=== PATIENT | male | born 1960 | race Caucasian/White ===

== ENCOUNTER 2021-12-09 13:04 | Inpatient (IN) | payer BC, SELFPAY ==
[2021-12-09] VITALS (7 sets, daily range): BP systolic 82–129; BP diastolic 42–62; PULSE 18–126; RESP 18–26; TEMP 36.7–37.1; O2SAT 96–98; BMI 35.2
--- NOTE | ~2021-12-09 | XR_ITS ---
EXAMINATION: XR CHEST CLINICAL INFORMATION: Weakness COMPARISON: None TECHNIQUE: Frontal view of the chest was obtained. FINDINGS: No significant abnormality is noted involving the heart, lungs, mediastinum, bony thorax or soft tissues. XR/XR chest 1V IMPRESSION: Unremarkable examination.
--- NOTE | ~2021-12-09 | CT_ITS ---
EXAMINATION: CT ANGIOGRAM OF THE CHEST WITH AND WITHOUT CONTRAST (CT PULMONARY ANGIOGRAM FOR PE) CLINICAL INFORMATION: Reason for Exam Presyncope. Elevated D-dimer. COMPARISON: None TECHNIQUE: Prior to contrast administration, noncontrast localization images were obtained. Subsequently, multidetector volumetric imaging was performed from the thoracic inlet to below the diaphragms following the administration of 80 mL Omnipaque 350 intravenous contrast. No contrast reaction reported Sagittal, coronal, and MIP oblique sagittal reformatted images were obtained on the CT workstation, uploaded to PACS, and reviewed. This CT examination was performed using dose optimization techniques as appropriate, variously including the following: *Automated exposure control *Adjustment of mA and/or kV according to patient size (this includes techniques or standardized protocols for targeted exams where dose is matched to indication/reason for exam; i.e. extremities or head) *Use of iterative reconstruction technique Total exam dose-length product 328 mGy-cm FINDINGS: QUALITY OF STUDY/CONTRAST BOLUS: Satisfactory. PULMONARY ARTERIES: No central or segmental pulmonary emboli. THORACIC AORTA: No aneurysm or dissection. LUNG: No focal consolidation, nodules or masses. PLEURA: No pleural effusion or pneumothorax. MEDIASTINUM: Normal heart size. No pericardial effusion. No hilar or mediastinal lymphadenopathy. No evidence of septal bowing or right heart strain. Prominent right posterior presumably diaphragmatic hernia containing fat only. No bowel involvement. CHEST WALL/AXILLA: No axillary or internal mammary lymphadenopathy. OSSEOUS STRUCTURES: No acute or suspicious osseous abnormality. UPPER ABDOMEN: Unremarkable. No reflux of contrast into the hepatic veins to suggest elevated right heart pressures. CT/CT angio chest PE protocol IMPRESSION: No evidence for any acute or chronic pulmonary embolism. VTE: negative
--- NOTE | 2021-12-09 13:27 | ECG_ITS ---
Test Reason : DIZZINESS Blood Pressure : / mmHG Vent. Rate : 099 BPM Atrial Rate : 000 BPM P-R Int : 000 ms QRS Dur : 106 ms QT Int : 294 ms P-R-T Axes : 000 243 052 degrees QTc Int : 377 ms Atrial fibrillation Right superior axis deviation Incomplete right bundle branch block Right ventricular hypertrophy Inferior infarct , age undetermined Abnormal ECG No previous ECGs available Referred By: Samina Barnard Electronically Signed By:ALFONZO MEHTA MD
[2021-12-09 14:04] LABS: MANUAL DIFF FLAG NO
--- NOTE | 2021-12-09 14:07 | ED.GENADULT ---
HPI - General Adult General Chief complaint: Dizziness Stated complaint: diarrhea Time Seen by Provider: 12/09/21 13:18 Source: patient Mode of arrival: ambulatory History of Present Illness HPI narrative: 61-year-old male with a past medical history of hypertension, Hypothyroid, presenting to the ED complaining of lightheadedness, generalized fatigue/weakness, full body pain/myalgias, and nonbloody watery diarrhea x3 days. Also reports some palpitations noted today. Admits to near syncope, denies LOC. Denies CP, SOB, abdominal pain, nausea/vomiting, pedal edema, recent travel, suspicious food intake Onset (ago): day(s) Related Data Home Medications Medication Instructions Recorded Confirmed hydrochlorothiazide 25 mg tablet 1 tab PO DAILY 12/09/21 12/09/21 levothyroxine 100 mcg tablet 1 tab PO DAILY 12/09/21 12/09/21 losartan 100 mg tablet 1 tab PO DAILY 12/09/21 12/09/21 Allergies Allergy/AdvReac Type Severity Reaction Status Date / Time No Known Allergies Allergy Verified 12/09/21 13:27 Review of Systems Review of Systems: Constitutional: No Fever, No Chills, + Fatigue, + Malaise ENT/Mouth: No Ear Pain, No Nasal Congestion, No Sinus Pain, No sore throat, No Rhinorrhea, No Swallowing Difficulty Eyes: No Eye Pain, No Swelling, No Redness, No Discharge Cardiovascular: No Chest Pain, No SOB, No Dyspnea on Exertion, No Orthopnea, No Edema, + Palpitations Respiratory: No Cough, No Sputum, No Dyspnea Gastrointestinal: No Nausea, No Vomiting, No Diarrhea, No Constipation, No Abdominal pain Genitourinary: No irregular bleeding, No Dysuria, No Urinary Frequency, No Hematuria, No Flank Pain, No Urinary Flow Changes Musculoskeletal: No joint pain, + Myalgias, No Joint Swelling Skin: No Skin Lesions, No rash Neuro: + Weakness, No Numbness, No Paresthesias, + Lightheaded, No Headache Yes all other systems are reviewed and are negative Neurologic: Denies Abnormal speech present [facility] Past Medical History Attestation statement: The following information was validated with the patient. Medical History HTN (hypertension) Hypothyroid Family History Family History Mother Diabetes HTN (hypertension) CAD (coronary artery disease) Social History Social History Advance Directives: Yes Advance Directives Information Provided: No Advance Directives on File: No Physical Exam ED Vital Signs: Vital Signs - 24 hr 12/09/21 13:16 12/09/21 14:40 12/09/21 14:41 Temperature 98.7 F Pulse Rate 126 H 92 81 Respiratory Rate 20 Blood Pressure 105/42 L 105/46 L 104/53 L Pulse Oximetry 98 12/09/21 14:43 12/09/21 14:46 12/09/21 17:54 Temperature 98.7 F 98.8 F Pulse Rate 80 90 106 H Respiratory Rate 18 19 Blood Pressure 82/48 L 92/53 L 129/62 Pulse Oximetry 98 97 BMI result Body Mass Index 35.2 Const General: cooperative, healthy appearing, no acute distress, well developed, alert and awake Orientation/consciousness: patient oriented x3 Limitations: no limitations HENMT Head: Yes normal to inspection and Yes atraumatic Ears: hearing grossly normal bilaterally General nose exam: Normal external nose present Face and sinus: Yes normal facial exam Throat: Yes posterior oropharynx normal, Yes tonsils normal and Yes uvula midline Eyes General: appearance normal, both eyes and all related structures EOM: EOMs intact bilaterally Neck Neck: Yes normal visual inspection and Yes no meningeal signs Resp Effort & Inspection: normal respiratory effort and no respiratory distress Auscultation: clear to auscultation bilaterally, no rales, no rhonchi and no wheezes Cardio Rate: tachycardic Rhythm: abnormal rhythm Heart sounds: S1 normal heart sound present and S2 normal heart sound present GI Inspection: Yes normal to inspection Palpation (GI): Soft to palpation, nontender, no guarding and not rigid General: Yes no CVA tenderness Back/Spine/Pelvis Back: no CVA tenderness Skin Rashes: no rashes Wounds: no wounds Neuro General: patient oriented x3, gait normal, tone normal, moves all extremities, no meningeal signs, no focal motor deficits and CN's II-XI intact bilaterally Cranial nerves: Yes CN's II-XII intact bilaterally and Yes Bilaterally intact EOM present Cognition (Neuro): normal cognition Speech: No Abnormal speech present Gait exam (Neuro): Normal gait present Motor exam (neuro): 5/5 motor strength present throughout, Pronator motor function not present and no tremor noted Extrem General: Yes normal to inspection and Yes no pedal edema Course Course Course Narrative: -1420--no leukocytosis, D-dimer elevated to 1023 > will obtain CTA. Lactic acid 1.8 -EKG showing AFib at a rate of 99. Possibly related to dehydration, due to potential for PE with elevated D-dimer will hold on rate control medications until CTA results [id number] Score =1 -1452--initial troponin 14.5 > will obtain 3 hour repeat. COVID-19 and influenza negative Labs hemolyzed. Pending redraw -1615--mild WONG with BUN of 25, creatinine 1.56. AST/ALT mildly elevated. Repeat troponin equivocal. XR chest 1V IMPRESSION: Unremarkable examination. -orthostatic vital signs positive -1723--CT angio chest PE protocol IMPRESSION: No evidence for any acute or chronic pulmonary embolism. VTE: negative > results discussed with patient. Plan to admit for further management Medical Decision Making MDM Narrative Medical decision making narrative: 61-year-old male with a past medical history of hypertension, Hypothyroid, presenting to the ED complaining of lightheadedness, generalized fatigue/weakness, full body pain/myalgias, and nonbloody watery diarrhea x3 days. On exam tachycardic, NAD, well-appearing/nontoxic, appears to be in new onset AFib on the monitor EKG pending, abdomen soft-nontender, no pedal edema, lungs CTA. No focal neuro deficits. Concern for new onset AFib vs PE vs dehydration/gastroenteritis/metabolic abnormalities vs viral syndrome including COVID-19 and influenza. Lower concern for ACS. Concern for ?C diff or infectious diarrhea Plan: EKG, labs, UA, CXR, IVF, stool studies, COVID/Influenza testing, anticipated admission Medical Records Medical records reviewed: Yes I reviewed the patient's medical records. Lab Data Lab results reviewed: Yes I reviewed the patient's lab results. Result diagrams: 12/09/21 13:54 12/09/21 15:09 Labs: Lab Results 12/09/21 12/09/21 12/09/21 Range/Units 13:54 13:54 13:54 WBC 6.5 (4.8-10.8) X10*3/uL RBC 5.30 (4.60-5.80) X10*6/uL Hgb 15.2 (14.0-18.0) g/dl Hct 45.6 (42.0-52.0) % MCV 86.0 (80.0-98.0) fL MCH 28.7 (27.0-33.0) pg MCHC 33.3 (31.0-36.0) g/dl RDW 13.2 (11.0-16.0) % Plt Count 159 L (160-400) X10*3/uL MPV 10.2 (9.4-12.4) fL Immature Gran % (Auto) 0.6 H (0.0-0.4) % Neut % (Auto) 80.6 H (45-73) % Lymph % (Auto) 10.1 L (20-40) % [place] % (Auto) 8.2 (2-11) % Eos % (Auto) 0.2 (0-4) % Baso % (Auto) 0.3 (0-2) % Lymph # (Auto) 0.7 L (1.2-4.9) X10*3/uL [place] # (Auto) 0.5 (0.1-1.2) X10*3/uL Eos # (Auto) 0.0 (0.0-0.4) X10*3/uL Baso # (Auto) 0.0 (0.0-0.2) X10*3/uL Abs Immat Gran (auto) 0.04 H (0.00-0.03) X10*3/uL Absolute Neuts (auto) 5.2 (2.0-8.3) x10*3/uL Absolute Nucleated RBC 0.000 (0.0-0.012) X10*3/uL Nucleated RBC % (auto) 0.0 (0.0-0.2) /100WBC PT 12.8 (9.9-13.0) SEC INR 1.1 (0.9-1.1) APTT 34.5 (24.1-38.0) SEC D-Dimer High Sensitivty 1023 NG/ML Sodium (135-145) mmol/L Potassium (3.3-5.1) mmol/L Chloride (96-108) mmol/L Carbon Dioxide (22-29) mmol/L Anion Gap (12-20) BUN (9-16) mg/dL Creatinine (0.5-1.4) mg/dL Estim Creat Clear Calc Estimated GFR Random Glucose (60-115) mg/dL Lactic Acid (0.5-2.0) mmol/L Calcium (8.4-10.2) mg/dL Magnesium (1.6-2.6) mg/dL Total Bilirubin (0.0-1.0) mg/dL Direct Bilirubin (0.0-0.5) mg/dL AST (5-37) U/L ALT (0-40) U/L Alkaline Phosphatase (39-117) U/L Troponin I High Sens 14.5 (<3.5-35.0) ng/L B-Natriuretic Peptide 57 (<100) pg/mL Total Protein (6.5-8.0) g/dL Albumin (3.5-5.0) g/dL Lipase (8-78) U/L TSH Free T4 (0.71-1.85) ng/dL Urine Color Urine Appearance Urine pH (5.0-8.0) Ur Specific [place] (1.005-1.025) Urine Protein (NEG-TRACE) MG/DL Urine Glucose (UA) (NEG) MG/DL Urine Ketones (NEG) MG/DL Urine Blood (NEG) Urine Nitrite (NEG) Ur Leukocyte Esterase (NEG) COVID-19 (LAUREL) (Negative) COVID-19 Clin Com Influenza Type A (HARMAN) (Negative) Influenza Type B (HARMAN) (Negative) Influenza A & B Note 12/09/21 12/09/21 12/09/21 Range/Units 13:54 13:54 13:54 WBC (4.8-10.8) X10*3/uL RBC (4.60-5.80) X10*6/uL Hgb (14.0-18.0) g/dl Hct (42.0-52.0) % MCV (80.0-98.0) fL MCH (27.0-33.0) pg MCHC (31.0-36.0) g/dl RDW (11.0-16.0) % Plt Count (160-400) X10*3/uL MPV (9.4-12.4) fL Immature Gran % (Auto) (0.0-0.4) % Neut % (Auto) (45-73) % Lymph % (Auto) (20-40) % [place] % (Auto) (2-11) % Eos % (Auto) (0-4) % Baso % (Auto) (0-2) % Lymph # (Auto) (1.2-4.9) X10*3/uL [place] # (Auto) (0.1-1.2) X10*3/uL Eos # (Auto) (0.0-0.4) X10*3/uL Baso # (Auto) (0.0-0.2) X10*3/uL Abs Immat Gran (auto) (0.00-0.03) X10*3/uL Absolute Neuts (auto) (2.0-8.3) x10*3/uL Absolute Nucleated RBC (0.0-0.012) X10*3/uL Nucleated RBC % (auto) (0.0-0.2) /100WBC PT (9.9-13.0) SEC INR (0.9-1.1) APTT (24.1-38.0) SEC D-Dimer High Sensitivty NG/ML Sodium (135-145) mmol/L Potassium (3.3-5.1) mmol/L Chloride (96-108) mmol/L Carbon Dioxide (22-29) mmol/L Anion Gap (12-20) BUN (9-16) mg/dL Creatinine (0.5-1.4) mg/dL Estim Creat Clear Calc Estimated GFR Random Glucose (60-115) mg/dL Lactic Acid 1.8 (0.5-2.0) mmol/L Calcium (8.4-10.2) mg/dL Magnesium (1.6-2.6) mg/dL Total Bilirubin (0.0-1.0) mg/dL Direct Bilirubin (0.0-0.5) mg/dL AST (5-37) U/L ALT (0-40) U/L Alkaline Phosphatase (39-117) U/L Troponin I High Sens (<3.5-35.0) ng/L B-Natriuretic Peptide (<100) pg/mL Total Protein (6.5-8.0) g/dL Albumin (3.5-5.0) g/dL Lipase (8-78) U/L TSH Free T4 (0.71-1.85) ng/dL Urine Color Urine Appearance Urine pH (5.0-8.0) Ur Specific [place] (1.005-1.025) Urine Protein (NEG-TRACE) MG/DL Urine Glucose (UA) (NEG) MG/DL Urine Ketones (NEG) MG/DL Urine Blood (NEG) Urine Nitrite (NEG) Ur Leukocyte Esterase (NEG) COVID-19 (LAUREL) Negative (Negative) COVID-19 Clin Com See Note Influenza Type A (HARMAN) Negative (Negative) Influenza Type B (HARMAN) Negative (Negative) Influenza A & B Note See Note 12/09/21 12/09/21 12/09/21 Range/Units 13:54 13:54 15:09 WBC (4.8-10.8) X10*3/uL RBC (4.60-5.80) X10*6/uL Hgb (14.0-18.0) g/dl Hct (42.0-52.0) % MCV (80.0-98.0) fL MCH (27.0-33.0) pg MCHC (31.0-36.0) g/dl RDW (11.0-16.0) % Plt Count (160-400) X10*3/uL MPV (9.4-12.4) fL Immature Gran % (Auto) (0.0-0.4) % Neut % (Auto) (45-73) % Lymph % (Auto) (20-40) % [place] % (Auto) (2-11) % Eos % (Auto) (0-4) % Baso % (Auto) (0-2) % Lymph # (Auto) (1.2-4.9) X10*3/uL [place] # (Auto) (0.1-1.2) X10*3/uL Eos # (Auto) (0.0-0.4) X10*3/uL Baso # (Auto) (0.0-0.2) X10*3/uL Abs Immat Gran (auto) (0.00-0.03) X10*3/uL Absolute Neuts (auto) (2.0-8.3) x10*3/uL Absolute Nucleated RBC (0.0-0.012) X10*3/uL Nucleated RBC % (auto) (0.0-0.2) /100WBC PT (9.9-13.0) SEC INR (0.9-1.1) APTT (24.1-38.0) SEC D-Dimer High Sensitivty Cancelled NG/ML Sodium 134 L (135-145) mmol/L Potassium 4.1 (3.3-5.1) mmol/L Chloride 97 (96-108) mmol/L Carbon Dioxide 27 (22-29) mmol/L Anion Gap 14 (12-20) BUN 25 H (9-16) mg/dL Creatinine 1.56 H (0.5-1.4) mg/dL Estim Creat Clear Calc 60.5 Estimated GFR 45 Random Glucose 116 H (60-115) mg/dL Lactic Acid (0.5-2.0) mmol/L Calcium 8.8 (8.4-10.2) mg/dL Magnesium 2.5 (1.6-2.6) mg/dL Total Bilirubin 0.5 (0.0-1.0) mg/dL Direct Bilirubin 0.2 (0.0-0.5) mg/dL AST 43 H (5-37) U/L ALT 48 H (0-40) U/L Alkaline Phosphatase 63 (39-117) U/L Troponin I High Sens (<3.5-35.0) ng/L B-Natriuretic Peptide (<100) pg/mL Total Protein 6.4 L (6.5-8.0) g/dL Albumin 3.8 (3.5-5.0) g/dL Lipase 31 (8-78) U/L TSH Cancelled 0.11 L Free T4 1.20 (0.71-1.85) ng/dL Urine Color Urine Appearance Urine pH (5.0-8.0) Ur Specific [place] (1.005-1.025) Urine Protein (NEG-TRACE) MG/DL Urine Glucose (UA) (NEG) MG/DL Urine Ketones (NEG) MG/DL Urine Blood (NEG) Urine Nitrite (NEG) Ur Leukocyte Esterase (NEG) COVID-19 (LAUREL) (Negative) COVID-19 Clin Com Influenza Type A (HARMAN) (Negative) Influenza Type B (HARMAN) (Negative) Influenza A & B Note 12/09/21 12/09/21 Range/Units 15:09 16:45 WBC (4.8-10.8) X10*3/uL RBC (4.60-5.80) X10*6/uL Hgb (14.0-18.0) g/dl Hct (42.0-52.0) % MCV (80.0-98.0) fL MCH (27.0-33.0) pg MCHC (31.0-36.0) g/dl RDW (11.0-16.0) % Plt Count (160-400) X10*3/uL MPV (9.4-12.4) fL Immature Gran % (Auto) (0.0-0.4) % Neut % (Auto) (45-73) % Lymph % (Auto) (20-40) % [place] % (Auto) (2-11) % Eos % (Auto) (0-4) % Baso % (Auto) (0-2) % Lymph # (Auto) (1.2-4.9) X10*3/uL [place] # (Auto) (0.1-1.2) X10*3/uL Eos # (Auto) (0.0-0.4) X10*3/uL Baso # (Auto) (0.0-0.2) X10*3/uL Abs Immat Gran (auto) (0.00-0.03) X10*3/uL Absolute Neuts (auto) (2.0-8.3) x10*3/uL Absolute Nucleated RBC (0.0-0.012) X10*3/uL Nucleated RBC % (auto) (0.0-0.2) /100WBC PT (9.9-13.0) SEC INR (0.9-1.1) APTT (24.1-38.0) SEC D-Dimer High Sensitivty NG/ML Sodium (135-145) mmol/L Potassium (3.3-5.1) mmol/L Chloride (96-108) mmol/L Carbon Dioxide (22-29) mmol/L Anion Gap (12-20) BUN (9-16) mg/dL Creatinine (0.5-1.4) mg/dL Estim Creat Clear Calc Estimated GFR Random Glucose (60-115) mg/dL Lactic Acid (0.5-2.0) mmol/L Calcium (8.4-10.2) mg/dL Magnesium (1.6-2.6) mg/dL Total Bilirubin (0.0-1.0) mg/dL Direct Bilirubin (0.0-0.5) mg/dL AST (5-37) U/L ALT (0-40) U/L Alkaline Phosphatase (39-117) U/L Troponin I High Sens 15.8 (<3.5-35.0) ng/L B-Natriuretic Peptide (<100) pg/mL Total Protein (6.5-8.0) g/dL Albumin (3.5-5.0) g/dL Lipase (8-78) U/L TSH Free T4 (0.71-1.85) ng/dL Urine Color YELLOW Urine Appearance CLEAR Urine pH 6.0 (5.0-8.0) Ur Specific [place] 1.020 (1.005-1.025) Urine Protein TRACE (NEG-TRACE) MG/DL Urine Glucose (UA) NEG (NEG) MG/DL Urine Ketones NEG (NEG) MG/DL Urine Blood NEG (NEG) Urine Nitrite NEG (NEG) Ur Leukocyte Esterase NEG (NEG) COVID-19 (LAUREL) (Negative) COVID-19 Clin Com Influenza Type A (HARMAN) (Negative) Influenza Type B (HARMAN) (Negative) Influenza A & B Note Critical Care Time Critical Care Time Critical Care Time: Yes Total Critical Care Time: 30 Attestation: I have personally provided critical care time exclusive of time spent on separately billable procedures. Time includes review of lab data, radiology results, discussion with consultants, and monitoring for potential decompensation. Intervention performed as documented. Discharge Plan Discharge Clinical Impression: New onset a-fib, Dehydration, WONG (acute kidney injury) Patient Disposition: Admitted As Inpatient
[2021-12-09 14:10] LABS: Basophils Percent Auto 0.3 % (0-2); Eosinophils Percent Auto 0.2 % (0-4); Hematocrit 45.6 % (42.0-52.0); Hemoglobin 15.2 g/dl (14.0-18.0); Imm Gran Abs Auto 0.04 X10*3/uL (0.00-0.03); Imm Gran Pct Auto 0.6 % (0.0-0.4); Lymphocytes Absolute Auto 0.7 X10*3/uL (1.2-4.9); Lymphocytes Percent Auto 10.1 % (20-40); Mean Corpuscular HGB Conc 33.3 g/dl (31.0-36.0); Mean Corpuscular Hemoglobin 28.7 pg (27.0-33.0); Mean Platelet Volume 10.2 fL (9.4-12.4); Monocytes Absolute Auto 0.5 X10*3/uL (0.1-1.2); Monocytes Percent Auto 8.2 % (2-11); Neutrophils Absolute Auto 5.2 x10*3/uL (2.0-8.3); Neutrophils Percent Auto 80.6 % (45-73); Platelet Count 159 X10*3/uL (160-400); Red Cell Distribution Width 13.2 % (11.0-16.0); White Blood Count 6.5 X10*3/uL (4.8-10.8)
[2021-12-09 14:13] LABS: INTERNATIONAL NORM RATIO 1.1 (0.9-1.1); Prothrombin Time 12.8 SEC (9.9-13.0)
[2021-12-09 14:15] LABS: D Dimer High Sensitivity 1023 NG/ML
[2021-12-09 14:16] LABS: Partial Thromboplastin Time 34.5 SEC (24.1-38.0)
[2021-12-09 14:17] LABS: Lactic Acid 1.8 mmol/L (0.5-2.0)
[2021-12-09 14:26] LABS: B Type Natriuretic Peptide 57 pg/mL (<100); COVID-19 Test Negative (Negative); IDNOW Serial# 16C4AD1C; Influenza A Negative (Negative); Influenza B2 Negative (Negative); Troponin-I High Sensitivity 14.5 ng/L (<3.5-35.0)
[2021-12-09] MEDS: 0.9 % Sodium Chloride 1,000 ML 999 ML IV (15:05)
[2021-12-09] MEDS: 0.9 % Sodium Chloride 500 ML 999 ML IV ×2 (15:06→18:04)
[2021-12-09 15:35] LABS: Alanine Aminotransferase 48 U/L (0-40); Albumin Level 3.8 g/dL (3.5-5.0); Alkaline Phosphatase 63 U/L (39-117); Anion Gap 14 (12-20); Aspartate Amino Transferase 43 U/L (5-37); Bilirubin Direct 0.2 mg/dL (0.0-0.5); Bilirubin Total 0.5 mg/dL (0.0-1.0); Blood Urea Nitrogen 25 mg/dL (9-16); Calcium 8.8 mg/dL (8.4-10.2); Carbon Dioxide 27 mmol/L (22-29); Chloride 97 mmol/L (96-108); Creatinine Clr Calc Pharmacy 60.5; Estimated Glomerular Filt Rate 45; Glucose Random 116 mg/dL (60-115); Lipase 31 U/L (8-78); Magnesium 2.5 mg/dL (1.6-2.6); Potassium 4.1 mmol/L (3.3-5.1); Sodium 134 mmol/L (135-145); Total Protein 6.4 g/dL (6.5-8.0)
[2021-12-09 15:37] LABS: Troponin-I High Sensitivity 15.8 ng/L (<3.5-35.0)
[2021-12-09 15:54] LABS: TSH reflex Free T4 0.11 uIU/mL (0.32-4.0)
[2021-12-09] MEDS: iohexoL 350 MG/ML 100 ML INFUS..BTL IV (16:21)
[2021-12-09] MEDS: Acetaminophen 325 MG TABLET 650 MG PO (16:54)
[2021-12-09 16:57] LABS: Appearance Urine CLEAR; Color Urine YELLOW; Glucose Urine UA NEG (NEG); Leukocyte Esterase Urine NEG (NEG); Nitrite Urine NEG (NEG); Urine Blood NEG (NEG); Urine Ketones NEG (NEG); Urine Protein TRACE MG/DL (NEG-TRACE)
--- NOTE | 2021-12-09 17:59 | HO.PM.IMCN ---
History of Present Illness Data of Consult Service Date: 12/09/21 Primary Care Provider: Tristian Villafuerte MD HPI 61 year old male with HTN takes Lisinopril and HCTZ, hypothyroidism on LT4 who has not been feeling since friday 2 days ago, weak, diarrhea, and pooor apetite. The has advised that he goes to ED and he wanted to take shower first, and after getting out of the shower and sitting on the toilet he fainted for about 5 minutes while son and were holding on to him, no evidence of seizure. 911 was subsquently to be brought to the ED where he is found to have AFIB with RVR HR 126 highest, and WONG Creatine 1.56. He feels a bit better Review of Systems Review of Systems: Gen: no fever Resp: no sob, no cough CV: no chest, no GAFFNEY, no leg edema, no palpitation GI: No n/v, no abd pain Neuro: No confusion PMFSH Medical History HTN (hypertension) Hypothyroid Family History Mother Diabetes HTN (hypertension) CAD (coronary artery disease) Social History Advance Directives: Yes Advance Directives Information Provided: No Advance Directives on File: No Meds Allergies Allergy/AdvReac Type Severity Reaction Status Date / Time No Known Allergies Allergy Verified 12/09/21 13:27 Active Medications: Current Medications Pharmacy Consult (Consult Rx Perform Med Rec) 1 each MISCELLANE ONCE PRN PRN Reason: Consult order Home Medications Medication Instructions Recorded Confirmed Last Taken Type hydrochlorothiazide 25 mg tablet 1 tab PO DAILY 12/09/21 12/09/21 Unknown History levothyroxine 100 mcg tablet 1 tab PO DAILY 12/09/21 12/09/21 Unknown History losartan 100 mg tablet 1 tab PO DAILY 12/09/21 12/09/21 Unknown History Physical Exam Vital Signs and Narrative: Vital Signs: Last Vital Signs Temp 98.8 F 12/09/21 17:54 Pulse 106 H 12/09/21 17:54 Resp 19 12/09/21 17:54 BP 129/62 12/09/21 17:54 Pulse Ox 97 12/09/21 17:54 BMI result Body Mass Index 35.2 Const: Other: Constitutional: Alert, in no distress, overweight. Mental Status: Oriented to person, place and time. Eyes: Pupils are equal, round and reactive to light. Ear, Nose and Throat: Oropharynx clear, mucous membranes moist. Ears and nose without eformities. Trachea midline. Respiratory: Clear to auscultation. No wheezing, rales or rhonchi. Cardiovascular: S1 S2 irregular irregular. No murmurs, rubs or gallops. Gastrointestinal: Abdomen soft, non-tender, non-distended. Normal bowel sounds.? Neurologic: Cranial nerves II-XII grossly intact. No focal neurological deficits. Moves all extremities spontaneously.? Skin: No rashes or lesions.? Musculoskeletal: No cyanosis or clubbing. Psychiatric: Normal mood and affect? Results Labs CBC and Chem 7: 12/10/21 06:19 12/10/21 06:19 Labs: Laboratory Results - last 24 hr 12/09/21 12/09/21 12/09/21 13:54 13:54 13:54 MCV 86.0 MCH 28.7 MCHC 33.3 RDW 13.2 Plt Count 159 L MPV 10.2 Immature Gran % (Auto) 0.6 H Neut % (Auto) 80.6 H Lymph % (Auto) 10.1 L [place] % (Auto) 8.2 Eos % (Auto) 0.2 Baso % (Auto) 0.3 Lymph # (Auto) 0.7 L [place] # (Auto) 0.5 Eos # (Auto) 0.0 Baso # (Auto) 0.0 Abs Immat Gran (auto) 0.04 H Absolute Neuts (auto) 5.2 Absolute Nucleated RBC 0.000 Nucleated RBC % (auto) 0.0 PT 12.8 INR 1.1 APTT 34.5 D-Dimer High Sensitivty 1023 Anion Gap Creatinine Estim Creat Clear Calc Estimated GFR Random Glucose Lactic Acid Calcium Magnesium Total Bilirubin Direct Bilirubin AST ALT Alkaline Phosphatase Troponin I High Sens 14.5 B-Natriuretic Peptide 57 Total Protein Albumin Lipase TSH Free T4 Urine Color Urine Appearance Urine pH Ur Specific [place] Urine Protein Urine Glucose (UA) Urine Ketones Urine Blood Urine Nitrite Ur Leukocyte Esterase COVID-19 (LAUREL) COVID-19 Clin Com Influenza Type A (HARMAN) Influenza Type B (HARMAN) Influenza A & B Note 12/09/21 12/09/21 12/09/21 13:54 13:54 13:54 MCV MCH MCHC RDW Plt Count MPV Immature Gran % (Auto) Neut % (Auto) Lymph % (Auto) [place] % (Auto) Eos % (Auto) Baso % (Auto) Lymph # (Auto) [place] # (Auto) Eos # (Auto) Baso # (Auto) Abs Immat Gran (auto) Absolute Neuts (auto) Absolute Nucleated RBC Nucleated RBC % (auto) PT INR APTT D-Dimer High Sensitivty Anion Gap Creatinine Estim Creat Clear Calc Estimated GFR Random Glucose Lactic Acid 1.8 Calcium Magnesium Total Bilirubin Direct Bilirubin AST ALT Alkaline Phosphatase Troponin I High Sens B-Natriuretic Peptide Total Protein Albumin Lipase TSH Free T4 Urine Color Urine Appearance Urine pH Ur Specific [place] Urine Protein Urine Glucose (UA) Urine Ketones Urine Blood Urine Nitrite Ur Leukocyte Esterase COVID-19 (LAUREL) Negative COVID-19 Clin Com See Note Influenza Type A (HARMAN) Negative Influenza Type B (HARMAN) Negative Influenza A & B Note See Note 12/09/21 12/09/21 12/09/21 13:54 13:54 15:09 MCV MCH MCHC RDW Plt Count MPV Immature Gran % (Auto) Neut % (Auto) Lymph % (Auto) [place] % (Auto) Eos % (Auto) Baso % (Auto) Lymph # (Auto) [place] # (Auto) Eos # (Auto) Baso # (Auto) Abs Immat Gran (auto) Absolute Neuts (auto) Absolute Nucleated RBC Nucleated RBC % (auto) PT INR APTT D-Dimer High Sensitivty Cancelled Anion Gap 14 Creatinine 1.56 H Estim Creat Clear Calc 60.5 Estimated GFR 45 Random Glucose 116 H Lactic Acid Calcium 8.8 Magnesium 2.5 Total Bilirubin 0.5 Direct Bilirubin 0.2 AST 43 H ALT 48 H Alkaline Phosphatase 63 Troponin I High Sens B-Natriuretic Peptide Total Protein 6.4 L Albumin 3.8 Lipase 31 TSH Cancelled 0.11 L Free T4 1.20 Urine Color Urine Appearance Urine pH Ur Specific [place] Urine Protein Urine Glucose (UA) Urine Ketones Urine Blood Urine Nitrite Ur Leukocyte Esterase COVID-19 (LAUREL) COVID-19 Clin Com Influenza Type A (HARMAN) Influenza Type B (HARMAN) Influenza A & B Note 12/09/21 12/09/21 15:09 16:45 MCV MCH MCHC RDW Plt Count MPV Immature Gran % (Auto) Neut % (Auto) Lymph % (Auto) [place] % (Auto) Eos % (Auto) Baso % (Auto) Lymph # (Auto) [place] # (Auto) Eos # (Auto) Baso # (Auto) Abs Immat Gran (auto) Absolute Neuts (auto) Absolute Nucleated RBC Nucleated RBC % (auto) PT INR APTT D-Dimer High Sensitivty Anion Gap Creatinine Estim Creat Clear Calc Estimated GFR Random Glucose Lactic Acid Calcium Magnesium Total Bilirubin Direct Bilirubin AST ALT Alkaline Phosphatase Troponin I High Sens 15.8 B-Natriuretic Peptide Total Protein Albumin Lipase TSH Free T4 Urine Color YELLOW Urine Appearance CLEAR Urine pH 6.0 Ur Specific [place] 1.020 Urine Protein TRACE Urine Glucose (UA) NEG Urine Ketones NEG Urine Blood NEG Urine Nitrite NEG Ur Leukocyte Esterase NEG COVID-19 (LAUREL) COVID-19 Clin Com Influenza Type A (HARMAN) Influenza Type B (HARMAN) Influenza A & B Note Imaging Radiologist's Impressions: Impressions Chest X-Ray 12/09/21 14:11 IMPRESSION: Unremarkable examination. Chest CTA 12/09/21 16:29 IMPRESSION: No evidence for any acute or chronic pulmonary embolism. VTE: negative Assessment and Plan (1) Hypothyroid: Status: Acute (2) HTN (hypertension): Status: Acute (3) New onset a-fib: Status: Acute (4) Dehydration: Status: Acute (5) WONG (acute kidney injury): Status: Acute Plan 61 year old male with HTN, Hypothyroidism here with syncope, new onset AFIB, and WONG 1/ AFIB--assymptomatic, so onset cannot be acsertained -Start Metoprolol 25 bid -Eliquis 5 mg bid -echo tomorrow -cardiology eval tomorro -check TSH 2/Syncope--likely from Orthostatic hypotension, related low BP, dehydation, BP med and diarrhea, except improvment with hydration. -check Orthostatic BP 2/ WONG--likely pre renal from diaarrhea and aggravated by HCTZ and Losartan --Hydrate, hold Losartan and HCTZ and reassess tomorrow 3/Diaarrhea, sounds viral, self limited, hydrate if recur check c dif and stool study 4/ HTN--BP was on low side, improved after hydration. Hold HCZT and Losarta 5/Hypothyroidism--continue Levothyroxine (LT4) 6/ DVT prophylaxis--Eliquis
[2021-12-09] MEDS: Sodium Chloride 0.45 % 1,000 ML 100 ML IVCONT (18:49)
[2021-12-09] MEDS: Apixaban 5 MG TABLET PO (20:35)
[2021-12-10] VITALS (8 sets, daily range): BP systolic 95–137; BP diastolic 51–71; PULSE 77–99; RESP 15–20; TEMP 36.3–36.8; O2SAT 95–97; BMI 35.2
[2021-12-10] MEDS: 0.9 % Sodium Chloride Flush 3 ML SYRINGE IVFLUSH ×2 (02:01→23:49)
[2021-12-10] MEDS: Sodium Chloride 0.45 % 1,000 ML 100 ML IVCONT (06:02)
[2021-12-10 06:46] LABS: Hematocrit 44.6 % (42.0-52.0); Hemoglobin 14.7 g/dl (14.0-18.0); Mean Corpuscular Hemoglobin 28.3 pg (27.0-33.0); Mean Corpuscular Volume 85.8 fL (80.0-98.0); Platelet Count 160 X10*3/uL (160-400); Red Cell Distribution Width 13.2 % (11.0-16.0)
--- NOTE | 2021-12-10 07:00 | CA_ITS ---
Transthoracic Echocardiogram Patient (Last, First, Middle): Cholo Polo M Gender: Male Date of : 1960 Age: 61 Procedure Date: 12/10/2021 Procedure Type: Transthoracic E[place]ogram [place] [facility] [place]: 177.8 cm Weight: 111.13 kg BSA: 2.28 m2 Heart Rate: bpm BP: 137 / 68 mmHg Aerophysicist: VH/OT Referring MD: Benson Montoya MD Formulator: Ant Dawkins MD Symptoms: new afib Study Quality: Fair/CONTRAST ECG Rhythm: Atrial Fibrillation Conclusions: - 1. Normal LV systolic function 2. Normal cardiac valvular Doppler 3. Normal RV systolic pressure 4. Trivial pericardial effusion Findings Left Ventricle Normal left ventricular size and systolic function. There is mildly increased left ventricular wall thickness. The visually estimated ejection fraction is between 60-65%. Diastolic function is indeterminate on the basis of available data. Right Ventricle The right ventricle was not well visualized. Atria The left atrium is normal in size. Interatrial shunt cannot be excluded. The right atrium was not well visualized. Aortic Valve The aortic valve structure and function is likely normal. There is no aortic valve stenosis. There is no aortic valve regurgitation. Mitral Valve Likely normal mitral valve structure and function. There is trace mitral valve regurgitation. There is no mitral valve stenosis. Pulmonic Valve The pulmonic valve was not well visualized. Tricuspid Valve Likely normal tricuspid valve structure and function. There is trace tricuspid valve regurgitation. The right ventricular systolic pressure is normal. The right ventricular systolic pressure is 18 mmHg. Normal right atrial pressure. There is no evidence of pulmonary hypertension. Great Vessels All visible segments of the aorta are normal in size. The pulmonary artery was not well visualized. Venous The inferior vena cava is normal in size and collapses greater than 50% with inspiration. Pericardium/Pleural There is a trivial circumferential pericardial effusion. Prior Study Comparison No prior study available for comparison. Measurements 2D Linear Measurements IVSd: 1.24 0.6-0.9/0.6-1.0 cm LVIDd: 5.08 3.9-5.3/4.2-5.9 cm LVIDd Index: 2.23 2.4-3.2/2.2-3.1 cm/m2 LVIDs: 3.27 2.0-3.6 cm LVPWd: 1.25 0.7-1.1 cm LA Diam: 4.00 2.7-3.8/3.0-4.0 cm LAIDs Index: 1.75 1.5-2.3 cm/m2 LV Mass: 314.81 67-162/88-224 g LV Mass Index: 138.07 43-95/49-115 g/m2 LVOT Diam: 2.20 3.0+(-)1.3 cm Mitral Valve MV Pk E: 0.72 MV Decel Time: 153.00 E'Lateral: 13.60 E'Medial: 9.03 E/E' Med: 7.90 E/E' Lat: 5.30 PHT: 45.00 MVA PHT: 4.89 Decel [place]: 4.67 Aortic Valve AoV Pk Lazaro: 0.91 AoV Mn Lazaro: 0.63 AoV VTI: 0.18 AoV Pk Grad: 3.00 Aov Mn Grad: 2.00 ALBERTO Cont.VTI: 2.34 LVOT LVOT Pk Lazaro: 0.63 LVOT Mn Lazaro: 0.41 LVOT VTI: 0.11 LVOT Pk Grad: 2.00 LVOT Mn Grad: 1.00 LVOT Diam: 2.20 LVOT Area: 3.80 Diastolic Function MV Pk E: 0.72 E'Medial: 9.03 E/E' Med: 7.90 E' Laterial: 13.60 E/E' Lat: 5.30 Right Ventricle TAPSE (mm): 23.00 TVS' Lazaro: 9.00 Tricuspid Valve TR Pk Lazaro: 1.94 TR Pk Grad: 15.00 RA Press: 3.00 RVSP: 18.00 Great Vessels Aorta Sinus of Valsalva: 3.50 2.0-3.5 cm Ao Asc: 3.10 2.1-3.4 cm Pulmonary Valve PV Pk Lazaro: 0.55 Peak PV Grad: 1.00 Updated in Other Vendor System with Status of Final Ant Dawkins MD electronically signed on 12/10/2021 3:57:00 PM with status of Final
[2021-12-10 07:01] LABS: Anion Gap 11 (12-20); Blood Urea Nitrogen 19 mg/dL (9-16); Calcium 8.4 mg/dL (8.4-10.2); Carbon Dioxide 26 mmol/L (22-29); Chloride 101 mmol/L (96-108); Cholesterol 170 mg/dL; Creatinine Clr Calc Pharmacy 85.8; Estimated Glomerular Filt Rate > 60; Glucose Random 107 mg/dL (60-115); HDL Cholesterol 25 mg/dL; LDL Cholesterol Calculated 109 mg/dl; Potassium 3.5 mmol/L (3.3-5.1); Sodium 134 mmol/L (135-145); Triglycerides 184 mg/dL
[2021-12-10 07:19] LABS: Atypical Lymph Absolute Manual 0.3 x10*3/uL; Atypical Lymphs Percent Manual 5 % (0-6); Band Neutrophils Percent 8 % (3-5); Lymphocytes Absolute Manual 0.7 X10*3/uL (1.2-4.9); Lymphocytes Percent Manual 13 % (20-40); Monocytes Absolute Manual 0.6 X10*3/uL (0.1-1.2); Monocytes Percent Manual 12 % (2-11); Neutrophils Absolute Manual 3.5 X10*3/uL (2.0-8.3); Neutrophils Percent Manual 62 % (45-73)
[2021-12-10 07:22] LABS: RBC Morphology NORMAL
[2021-12-10 07:23] LABS: Platelet Estimate NORMAL (NORMAL); Platelet Morphology Comment NORMAL
[2021-12-10] MEDS: Apixaban 5 MG TABLET PO ×2 (09:38→19:47)
[2021-12-10] MEDS: Metoprolol Tartrate 25 MG TABLET PO ×4 (09:38→23:49)
--- NOTE | 2021-12-10 10:46 | PM.CNCAR ---
History of Present Illness History of Present Illness Date of Service: 12/10/21 Requesting physician: Benson Montoya Consult reason: atrial fibrillation Chief complaint: New Afib WONG Syncope Narrative: Thank you for consulting us on Cholo for management of his atrial fibrillation. He is a 61-year-old male with prior history of hypothyroidism and hypertension for few years. He said this is been managed by overall therapy. He was doing well till when he was in usual state of health went out for dinner with his and then said he was not feeling well. He woke up on Friday morning and said he was not feeling well not able to describe much but says he had diffuse body pains and aches and had significant diarrhea. He could not do much that day. Denies any cardiac symptoms of chest pain, shortness of breath, palpitations, lightheadedness. Friday continue to not feel well. Friday he was not feeling well and decided to bring him to the emergency room and he said he will take a shower. He went into the shower and then as per him was sitting on the commode to dry off and then noted that he had lost consciousness, he was being held by his and his son. 911 was then called and he was brought to the emergency room. In the emergency room he was noted to have new onset atrial fibrillation rapid ventricular response and was also noted to have low blood pressure and acute kidney injury. He has been hydrated. This morning he said he feels 100% better. His diffuse body aches have improved he is not having any cardiac symptoms right now but remains in atrial fibrillation with borderline rate control. Denies any palpitations, shortness of breath, orthopnea, PND. Does not recall having any cardiac issues in the past. Review of Systems Constitutional: Constitutional: Reports body ache(s), Denies chills, Denies fever(s), Reports malaise and Reports weakness Eyes: Eyes: Reports no additional eye complaints Cardiovascular: Cardiovascular: Reports no additional cardiovascular complaints Respiratory: Respiratory: Reports no additional respiratory complaints Gastrointestinal: Gastrointestinal: Reports diarrhea Genitourinary: Genitourinary: Reports no additional male genitourinary complaints Musculoskeletal: Musculoskeletal: Reports no additional musculoskeletal complaints Integumentary/Breasts: Skin/Breast: Reports system reviewed and no additional complaints, except as docu Neurologic: Reports system reviewed and no additional complaints, except as documented and Reports weakness Psychiatric: Psychiatric: Reports no additional psychiatric complaints Endocrine: Endocrine: Reports no additional endocrine complaints Hematologic/Lymphatic: Hematologic/Lymphatic: Reports no additional hematologic/lymphatic complaints Allergic/Immunologic: Allergic/Immunologic: Reports no additional allergic/immunologic complaints [facility] Past Medical History Medical History HTN (hypertension) Hypothyroid Family History Family History Mother Diabetes HTN (hypertension) CAD (coronary artery disease) Social History Social History Advance Directives: Yes Advance Directives Information Provided: No Advance Directives on File: No Meds Allergies Allergy/AdvReac Type Severity Reaction Status Date / Time No Known Allergies Allergy Verified 12/09/21 13:27 Active Medications: Current Medications Apixaban (Apixaban 5 Mg Tablet) 5 mg PO BID COUNT INCLUDES THE [facility] Last Admin: 12/10/21 09:38 Dose: 5 mg Documented by: Sodium Chloride () 1,000 mls @ 100 mls/hr IVCONT .Q10H COUNT INCLUDES THE [facility] Stop: 12/10/21 14:29 Last Admin: 12/10/21 06:02 Dose: 100 mls/hr Documented by: Melatonin (Melatonin 3 Mg Tablet) 6 mg PO BEDTIME PRN PRN Reason: Insomnia Metoprolol Tartrate (Metoprolol Tartrate 25 Mg Tablet) 25 mg PO BID COUNT INCLUDES THE [facility]; Protocol Last Admin: 12/10/21 09:38 Dose: 25 mg Documented by: Ondansetron HCl (Ondansetron Hcl 4 Mg/2 Ml Vial) 4 mg IVPUSH Q8H PRN PRN Reason: Nausea and Vomiting Pharmacy Consult (Consult Rx Perform Med Rec) 1 each MISCELLANE ONCE PRN PRN Reason: Consult order Sodium Chloride (0.9 % Sodium Chloride Flush 3 Ml Syringe) 3 ml IVFLUSH QSHIFT COUNT INCLUDES THE [facility] Last Admin: 12/10/21 08:30 Dose: Not Given Documented by: Home Medications Medication Instructions Recorded Confirmed Last Taken Type hydrochlorothiazide 25 mg tablet 1 tab PO DAILY 12/09/21 12/09/21 Unknown History levothyroxine 100 mcg tablet 1 tab PO DAILY 12/09/21 12/09/21 Unknown History losartan 100 mg tablet 1 tab PO DAILY 12/09/21 12/09/21 Unknown History Physical Exam Vital Signs: Vital Signs: Last Vital Signs Temp 98.0 F 12/09/21 22:06 Pulse 93 12/10/21 09:41 Resp 16 12/10/21 09:41 BP 109/51 L 12/10/21 09:41 Pulse Ox 97 12/10/21 09:41 BMI result Body Mass Index 35.2 Const: General: cooperative, comfortable, no acute distress, alert and awake Nutritional Appearance: obese Orientation/consciousness: patient oriented x3 Limitations: no limitations HEENT: Head: Yes normocephalic and Yes atraumatic Neck: Neck: Yes trachea midline, Yes supple and Yes no JVD Chest: Chest palpation & inspection: normal inspection of the chest Resp: Effort & Inspection: normal respiratory effort Auscultation: clear to auscultation bilaterally Cardio: Jugular venous distension: no JVD Rhythm: abnormal rhythm irregularly irregular Heart sounds: S1 normal heart sound present, S2 normal heart sound present, no click, no gallops, no murmurs and no rubs GI: Inspection: Yes obesity Auscultation: normal bowel sounds Skin: General skin exam: no rashes or lesions noted Neuro: General: patient oriented x3 and no focal motor deficits Extrem: General: Yes no clubbing, cyanosis or edema Objective Labs and Meds Result diagrams: 12/10/21 06:19 12/10/21 06:19 Lab results: Laboratory Results - last 24 hr 12/09/21 12/09/21 12/09/21 13:54 13:54 13:54 WBC 6.5 RBC 5.30 Hgb 15.2 Hct 45.6 MCV 86.0 MCH 28.7 MCHC 33.3 RDW 13.2 Plt Count 159 L MPV 10.2 Immature Gran % (Auto) 0.6 H Neut % (Auto) 80.6 H Lymph % (Auto) 10.1 L [place] % (Auto) 8.2 Eos % (Auto) 0.2 Baso % (Auto) 0.3 Lymph # (Auto) 0.7 L [place] # (Auto) 0.5 Eos # (Auto) 0.0 Baso # (Auto) 0.0 Abs Immat Gran (auto) 0.04 H Absolute Neuts (auto) 5.2 Absolute Nucleated RBC 0.000 Nucleated RBC % (auto) 0.0 Neutrophils % (Manual) Band Neutrophils % Lymphocytes % (Manual) Atypical Lymphs % (Man) Monocytes % (Manual) Abs Neuts (Manual) Lymphocytes # (Manual) Atyp Lymphs # (Manual) Monocytes # (Manual) Platelet Estimate Plt Morphology Comment RBC Morphology PT 12.8 INR 1.1 APTT 34.5 D-Dimer High Sensitivty 1023 Sodium Potassium Chloride Carbon Dioxide Anion Gap BUN Creatinine Estim Creat Clear Calc Estimated GFR Random Glucose Lactic Acid Calcium Magnesium Total Bilirubin Direct Bilirubin AST ALT Alkaline Phosphatase Troponin I High Sens 14.5 B-Natriuretic Peptide 57 Total Protein Albumin Triglycerides Cholesterol LDL Cholesterol, Calc HDL Cholesterol Lipase TSH Free T4 Urine Color Urine Appearance Urine pH Ur Specific Russell Urine Protein Urine Glucose (UA) Urine Ketones Urine Blood Urine Nitrite Ur Leukocyte Esterase COVID-19 (LAUREL) COVID-19 Clin Com Influenza Type A (HARMAN) Influenza Type B (HARMAN) Influenza A & B Note 12/09/21 12/09/21 12/09/21 13:54 13:54 13:54 WBC RBC Hgb Hct MCV MCH MCHC RDW Plt Count MPV Immature Gran % (Auto) Neut % (Auto) Lymph % (Auto) [place] % (Auto) Eos % (Auto) Baso % (Auto) Lymph # (Auto) [place] # (Auto) Eos # (Auto) Baso # (Auto) Abs Immat Gran (auto) Absolute Neuts (auto) Absolute Nucleated RBC Nucleated RBC % (auto) Neutrophils % (Manual) Band Neutrophils % Lymphocytes % (Manual) Atypical Lymphs % (Man) Monocytes % (Manual) Abs Neuts (Manual) Lymphocytes # (Manual) Atyp Lymphs # (Manual) Monocytes # (Manual) Platelet Estimate Plt Morphology Comment RBC Morphology PT INR APTT D-Dimer High Sensitivty Sodium Potassium Chloride Carbon Dioxide Anion Gap BUN Creatinine Estim Creat Clear Calc Estimated GFR Random Glucose Lactic Acid 1.8 Calcium Magnesium Total Bilirubin Direct Bilirubin AST ALT Alkaline Phosphatase Troponin I High Sens B-Natriuretic Peptide Total Protein Albumin Triglycerides Cholesterol LDL Cholesterol, Calc HDL Cholesterol Lipase TSH Free T4 Urine Color Urine Appearance Urine pH Ur Specific Russell Urine Protein Urine Glucose (UA) Urine Ketones Urine Blood Urine Nitrite Ur Leukocyte Esterase COVID-19 (LAUREL) Negative COVID-19 Clin Com See Note Influenza Type A (HARMAN) Negative Influenza Type B (HARMAN) Negative Influenza A & B Note See Note 12/09/21 12/09/21 12/09/21 13:54 13:54 15:09 WBC RBC Hgb Hct MCV MCH MCHC RDW Plt Count MPV Immature Gran % (Auto) Neut % (Auto) Lymph % (Auto) [place] % (Auto) Eos % (Auto) Baso % (Auto) Lymph # (Auto) [place] # (Auto) Eos # (Auto) Baso # (Auto) Abs Immat Gran (auto) Absolute Neuts (auto) Absolute Nucleated RBC Nucleated RBC % (auto) Neutrophils % (Manual) Band Neutrophils % Lymphocytes % (Manual) Atypical Lymphs % (Man) Monocytes % (Manual) Abs Neuts (Manual) Lymphocytes # (Manual) Atyp Lymphs # (Manual) Monocytes # (Manual) Platelet Estimate Plt Morphology Comment RBC Morphology PT INR APTT D-Dimer High Sensitivty Cancelled Sodium 134 L Potassium 4.1 Chloride 97 Carbon Dioxide 27 Anion Gap 14 BUN 25 H Creatinine 1.56 H Estim Creat Clear Calc 60.5 Estimated GFR 45 Random Glucose 116 H Lactic Acid Calcium 8.8 Magnesium 2.5 Total Bilirubin 0.5 Direct Bilirubin 0.2 AST 43 H ALT 48 H Alkaline Phosphatase 63 Troponin I High Sens B-Natriuretic Peptide Total Protein 6.4 L Albumin 3.8 Triglycerides Cholesterol LDL Cholesterol, Calc HDL Cholesterol Lipase 31 TSH Cancelled 0.11 L Free T4 1.20 Urine Color Urine Appearance Urine pH Ur Specific Russell Urine Protein Urine Glucose (UA) Urine Ketones Urine Blood Urine Nitrite Ur Leukocyte Esterase COVID-19 (LAUREL) COVID-19 Clin Com Influenza Type A (HARMAN) Influenza Type B (HARMAN) Influenza A & B Note 12/09/21 12/09/21 12/10/21 15:09 16:45 06:19 WBC 5.0 RBC 5.20 Hgb 14.7 Hct 44.6 MCV 85.8 MCH 28.3 MCHC 33.0 RDW 13.2 Plt Count 160 MPV 11.0 Immature Gran % (Auto) Cancelled Neut % (Auto) Cancelled Lymph % (Auto) Cancelled [place] % (Auto) Cancelled Eos % (Auto) Cancelled Baso % (Auto) Cancelled Lymph # (Auto) Cancelled [place] # (Auto) Cancelled Eos # (Auto) Cancelled Baso # (Auto) Cancelled Abs Immat Gran (auto) Cancelled Absolute Neuts (auto) Cancelled Absolute Nucleated RBC 0.000 Nucleated RBC % (auto) 0.0 Neutrophils % (Manual) 62 Band Neutrophils % 8 H Lymphocytes % (Manual) 13 L Atypical Lymphs % (Man) 5 Monocytes % (Manual) 12 H Abs Neuts (Manual) 3.5 Lymphocytes # (Manual) 0.7 L Atyp Lymphs # (Manual) 0.3 Monocytes # (Manual) 0.6 Platelet Estimate NORMAL Plt Morphology Comment NORMAL RBC Morphology NORMAL PT INR APTT D-Dimer High Sensitivty Sodium Potassium Chloride Carbon Dioxide Anion Gap BUN Creatinine Estim Creat Clear Calc Estimated GFR Random Glucose Lactic Acid Calcium Magnesium Total Bilirubin Direct Bilirubin AST ALT Alkaline Phosphatase Troponin I High Sens 15.8 B-Natriuretic Peptide Total Protein Albumin Triglycerides Cholesterol LDL Cholesterol, Calc HDL Cholesterol Lipase TSH Free T4 Urine Color YELLOW Urine Appearance CLEAR Urine pH 6.0 Ur Specific Russell 1.020 Urine Protein TRACE Urine Glucose (UA) NEG Urine Ketones NEG Urine Blood NEG Urine Nitrite NEG Ur Leukocyte Esterase NEG COVID-19 (LAUREL) COVID-19 Clin Com Influenza Type A (HARMAN) Influenza Type B (HARMAN) Influenza A & B Note 12/10/21 06:19 WBC RBC Hgb Hct MCV MCH MCHC RDW Plt Count MPV Immature Gran % (Auto) Neut % (Auto) Lymph % (Auto) [place] % (Auto) Eos % (Auto) Baso % (Auto) Lymph # (Auto) [place] # (Auto) Eos # (Auto) Baso # (Auto) Abs Immat Gran (auto) Absolute Neuts (auto) Absolute Nucleated RBC Nucleated RBC % (auto) Neutrophils % (Manual) Band Neutrophils % Lymphocytes % (Manual) Atypical Lymphs % (Man) Monocytes % (Manual) Abs Neuts (Manual) Lymphocytes # (Manual) Atyp Lymphs # (Manual) Monocytes # (Manual) Platelet Estimate Plt Morphology Comment RBC Morphology PT INR APTT D-Dimer High Sensitivty Sodium 134 L Potassium 3.5 Chloride 101 Carbon Dioxide 26 Anion Gap 11 L BUN 19 H Creatinine 1.10 Estim Creat Clear Calc 85.8 Estimated GFR > 60 Random Glucose 107 Lactic Acid Calcium 8.4 Magnesium Total Bilirubin Direct Bilirubin AST ALT Alkaline Phosphatase Troponin I High Sens B-Natriuretic Peptide Total Protein Albumin Triglycerides 184 Cholesterol 170 LDL Cholesterol, Calc 109 HDL Cholesterol 25 Lipase TSH Free T4 Urine Color Urine Appearance Urine pH Ur Specific Russell Urine Protein Urine Glucose (UA) Urine Ketones Urine Blood Urine Nitrite Ur Leukocyte Esterase COVID-19 (LAUREL) COVID-19 Clin Com Influenza Type A (HARMAN) Influenza Type B (HARMAN) Influenza A & B Note Imaging Radiologist's impression: Impressions Chest X-Ray 12/09/21 14:11 IMPRESSION: Unremarkable examination. Chest CTA 12/09/21 16:29 IMPRESSION: No evidence for any acute or chronic pulmonary embolism. VTE: negative Assessment and Plan (1) New onset a-fib: Status: Acute New onset atrial fibrillation in this middle-aged man with prior history of hypertension as a risk factor. Unclear duration of atrial fibrillation at this point time. Currently having no symptoms related to atrial fibrillation no signs of cardiac decompensation. Rate is borderline controlled. Possibly triggered by his acute medical illness question diffuse systemic symptoms of muscle aches and diarrhea probably suggestive of viral syndrome. At this point time will continue rate control for now with increase metoprolol to 25 mg q.6 hours for better rate control. Continue Eliquis as prescribed for thromboembolic protection. Echocardiogram today to assess for cardiac structure and function including evaluation for biatrial chamber size. We discussed in details about management of atrial fibrillation including pathophysiology of atrial fibrillation and eventual rhythm control approach. At this point time given that he is not having any symptoms and unknown duration of atrial fibrillation will avoid doing acute cardioversion. If he remains stable plan to discharge him tomorrow and follow up as outpatient with pursuing rhythm control as outpatient. Will require sleep study given his body habitus and history of hypertension and now atrial fibrillation to rule out sleep apnea as the risk factors/causative factor. Will follow up with him. Thank you for allowing me to partake in his care Procedures Date of Service Date of Service: 12/10/21
--- NOTE | 2021-12-10 10:54 | P.PNIM_ITS ---
Subjective Subjective Date of Service: 12/10/21 Physical Exam Vital Signs: Vital Signs: Last Vital Signs Temp 98.0 F 12/09/21 22:06 Pulse 93 12/10/21 09:41 Resp 16 12/10/21 09:41 BP 109/51 L 12/10/21 09:41 Pulse Ox 97 12/10/21 09:41 BMI result Body Mass Index 35.2 Objective Data Active Medications Apixaban (Apixaban 5 Mg Tablet) 5 mg PO BID [facility] Last Admin: 12/10/21 09:38 Dose: 5 mg Documented by: WOODY Sodium Chloride () 1,000 mls @ 100 mls/hr IVCONT .Q10H [facility] Stop: 12/10/21 14:29 Last Admin: 12/10/21 06:02 Dose: 100 mls/hr Documented by: AMANDEEP Melatonin (Melatonin 3 Mg Tablet) 6 mg PO BEDTIME PRN PRN Reason: Insomnia Metoprolol Tartrate (Metoprolol Tartrate 25 Mg Tablet) 25 mg PO Q6H [facility]; Protocol Ondansetron HCl (Ondansetron Hcl 4 Mg/2 Ml Vial) 4 mg IVPUSH Q8H PRN PRN Reason: Nausea and Vomiting Pharmacy Consult (Consult Rx Perform Med Rec) 1 each MISCELLANE ONCE PRN PRN Reason: Consult order Sodium Chloride (0.9 % Sodium Chloride Flush 3 Ml Syringe) 3 ml IVFLUSH QSHIFT [facility] Last Admin: 12/10/21 08:30 Dose: Not Given Documented by: HEENA Non-Admin Reason: IV Running Labs CBC & Chem 7: 12/10/21 06:19 12/10/21 06:19 Labs: Laboratory Results - last 24 hr 12/09/21 12/09/21 12/09/21 13:54 13:54 13:54 MCV 86.0 MCH 28.7 MCHC 33.3 RDW 13.2 Plt Count 159 L MPV 10.2 Immature Gran % (Auto) 0.6 H Neut % (Auto) 80.6 H Lymph % (Auto) 10.1 L [place] % (Auto) 8.2 Eos % (Auto) 0.2 Baso % (Auto) 0.3 Lymph # (Auto) 0.7 L [place] # (Auto) 0.5 Eos # (Auto) 0.0 Baso # (Auto) 0.0 Abs Immat Gran (auto) 0.04 H Absolute Neuts (auto) 5.2 Absolute Nucleated RBC 0.000 Nucleated RBC % (auto) 0.0 Neutrophils % (Manual) Band Neutrophils % Lymphocytes % (Manual) Atypical Lymphs % (Man) Monocytes % (Manual) Abs Neuts (Manual) Lymphocytes # (Manual) Atyp Lymphs # (Manual) Monocytes # (Manual) Platelet Estimate Plt Morphology Comment RBC Morphology PT 12.8 INR 1.1 APTT 34.5 D-Dimer High Sensitivty 1023 Anion Gap Estim Creat Clear Calc Estimated GFR Random Glucose Lactic Acid Calcium Magnesium Total Bilirubin Direct Bilirubin AST ALT Alkaline Phosphatase Troponin I High Sens 14.5 B-Natriuretic Peptide 57 Total Protein Albumin Triglycerides Cholesterol LDL Cholesterol, Calc HDL Cholesterol Lipase TSH Free T4 Urine Color Urine Appearance Urine pH Ur Specific [place] Urine Protein Urine Glucose (UA) Urine Ketones Urine Blood Urine Nitrite Ur Leukocyte Esterase COVID-19 (LAUREL) COVID-19 Clin Com Influenza Type A (HARMAN) Influenza Type B (HARMAN) Influenza A & B Note 12/09/21 12/09/21 12/09/21 13:54 13:54 13:54 MCV MCH MCHC RDW Plt Count MPV Immature Gran % (Auto) Neut % (Auto) Lymph % (Auto) [place] % (Auto) Eos % (Auto) Baso % (Auto) Lymph # (Auto) [place] # (Auto) Eos # (Auto) Baso # (Auto) Abs Immat Gran (auto) Absolute Neuts (auto) Absolute Nucleated RBC Nucleated RBC % (auto) Neutrophils % (Manual) Band Neutrophils % Lymphocytes % (Manual) Atypical Lymphs % (Man) Monocytes % (Manual) Abs Neuts (Manual) Lymphocytes # (Manual) Atyp Lymphs # (Manual) Monocytes # (Manual) Platelet Estimate Plt Morphology Comment RBC Morphology PT INR APTT D-Dimer High Sensitivty Anion Gap Estim Creat Clear Calc Estimated GFR Random Glucose Lactic Acid 1.8 Calcium Magnesium Total Bilirubin Direct Bilirubin AST ALT Alkaline Phosphatase Troponin I High Sens B-Natriuretic Peptide Total Protein Albumin Triglycerides Cholesterol LDL Cholesterol, Calc HDL Cholesterol Lipase TSH Free T4 Urine Color Urine Appearance Urine pH Ur Specific [place] Urine Protein Urine Glucose (UA) Urine Ketones Urine Blood Urine Nitrite Ur Leukocyte Esterase COVID-19 (LAUREL) Negative COVID-19 Clin Com See Note Influenza Type A (HARMAN) Negative Influenza Type B (HARMAN) Negative Influenza A & B Note See Note 12/09/21 12/09/21 12/09/21 13:54 13:54 15:09 MCV MCH MCHC RDW Plt Count MPV Immature Gran % (Auto) Neut % (Auto) Lymph % (Auto) [place] % (Auto) Eos % (Auto) Baso % (Auto) Lymph # (Auto) [place] # (Auto) Eos # (Auto) Baso # (Auto) Abs Immat Gran (auto) Absolute Neuts (auto) Absolute Nucleated RBC Nucleated RBC % (auto) Neutrophils % (Manual) Band Neutrophils % Lymphocytes % (Manual) Atypical Lymphs % (Man) Monocytes % (Manual) Abs Neuts (Manual) Lymphocytes # (Manual) Atyp Lymphs # (Manual) Monocytes # (Manual) Platelet Estimate Plt Morphology Comment RBC Morphology PT INR APTT D-Dimer High Sensitivty Cancelled Anion Gap 14 Estim Creat Clear Calc 60.5 Estimated GFR 45 Random Glucose 116 H Lactic Acid Calcium 8.8 Magnesium 2.5 Total Bilirubin 0.5 Direct Bilirubin 0.2 AST 43 H ALT 48 H Alkaline Phosphatase 63 Troponin I High Sens B-Natriuretic Peptide Total Protein 6.4 L Albumin 3.8 Triglycerides Cholesterol LDL Cholesterol, Calc HDL Cholesterol Lipase 31 TSH Cancelled 0.11 L Free T4 1.20 Urine Color Urine Appearance Urine pH Ur Specific [place] Urine Protein Urine Glucose (UA) Urine Ketones Urine Blood Urine Nitrite Ur Leukocyte Esterase COVID-19 (LAUREL) COVID-19 Clin Com Influenza Type A (HARMAN) Influenza Type B (HARMAN) Influenza A & B Note 12/09/21 12/09/21 12/10/21 15:09 16:45 06:19 MCV 85.8 MCH 28.3 MCHC 33.0 RDW 13.2 Plt Count 160 MPV 11.0 Immature Gran % (Auto) Cancelled Neut % (Auto) Cancelled Lymph % (Auto) Cancelled [place] % (Auto) Cancelled Eos % (Auto) Cancelled Baso % (Auto) Cancelled Lymph # (Auto) Cancelled [place] # (Auto) Cancelled Eos # (Auto) Cancelled Baso # (Auto) Cancelled Abs Immat Gran (auto) Cancelled Absolute Neuts (auto) Cancelled Absolute Nucleated RBC 0.000 Nucleated RBC % (auto) 0.0 Neutrophils % (Manual) 62 Band Neutrophils % 8 H Lymphocytes % (Manual) 13 L Atypical Lymphs % (Man) 5 Monocytes % (Manual) 12 H Abs Neuts (Manual) 3.5 Lymphocytes # (Manual) 0.7 L Atyp Lymphs # (Manual) 0.3 Monocytes # (Manual) 0.6 Platelet Estimate NORMAL Plt Morphology Comment NORMAL RBC Morphology NORMAL PT INR APTT D-Dimer High Sensitivty Anion Gap Estim Creat Clear Calc Estimated GFR Random Glucose Lactic Acid Calcium Magnesium Total Bilirubin Direct Bilirubin AST ALT Alkaline Phosphatase Troponin I High Sens 15.8 B-Natriuretic Peptide Total Protein Albumin Triglycerides Cholesterol LDL Cholesterol, Calc HDL Cholesterol Lipase TSH Free T4 Urine Color YELLOW Urine Appearance CLEAR Urine pH 6.0 Ur Specific [place] 1.020 Urine Protein TRACE Urine Glucose (UA) NEG Urine Ketones NEG Urine Blood NEG Urine Nitrite NEG Ur Leukocyte Esterase NEG COVID-19 (LAUREL) COVID-19 Clin Com Influenza Type A (HARMAN) Influenza Type B (HARMAN) Influenza A & B Note 12/10/21 06:19 MCV MCH MCHC RDW Plt Count MPV Immature Gran % (Auto) Neut % (Auto) Lymph % (Auto) [place] % (Auto) Eos % (Auto) Baso % (Auto) Lymph # (Auto) [place] # (Auto) Eos # (Auto) Baso # (Auto) Abs Immat Gran (auto) Absolute Neuts (auto) Absolute Nucleated RBC Nucleated RBC % (auto) Neutrophils % (Manual) Band Neutrophils % Lymphocytes % (Manual) Atypical Lymphs % (Man) Monocytes % (Manual) Abs Neuts (Manual) Lymphocytes # (Manual) Atyp Lymphs # (Manual) Monocytes # (Manual) Platelet Estimate Plt Morphology Comment RBC Morphology PT INR APTT D-Dimer High Sensitivty Anion Gap 11 L Estim Creat Clear Calc 85.8 Estimated GFR > 60 Random Glucose 107 Lactic Acid Calcium 8.4 Magnesium Total Bilirubin Direct Bilirubin AST ALT Alkaline Phosphatase Troponin I High Sens B-Natriuretic Peptide Total Protein Albumin Triglycerides 184 Cholesterol 170 LDL Cholesterol, Calc 109 HDL Cholesterol 25 Lipase TSH Free T4 Urine Color Urine Appearance Urine pH Ur Specific [place] Urine Protein Urine Glucose (UA) Urine Ketones Urine Blood Urine Nitrite Ur Leukocyte Esterase COVID-19 (LAUREL) COVID-19 Clin Com Influenza Type A (HARMAN) Influenza Type B (HARMAN) Influenza A & B Note Assessment and Plan (1) Hypothyroid: Status: Acute (2) HTN (hypertension): Status: Acute (3) New onset a-fib: Status: Acute (4) Dehydration: Status: Acute (5) WONG (acute kidney injury): Status: Acute Plan 61 year old male with HTN, Hypothyroidism here with syncope, new onset AFIB, and WONG 1/ AFIB--assymptomatic, so onset cannot ascertain. HR is still variably hig - Metoprolol 25 Q6 -Eliquis 5 mg bid -echo today -cardiology assessing 2/Syncope--likely from Orthostatic hypotension, related low BP, dehydation, BP med and diarrhea, except improvment with hydration. -checked Orthostatic BP 2/ WONG--likely pre renal from diaarrhea and aggravated by HCTZ and Losartan. R esolved Crea is normal 3/Diaarrhea, sounds viral, self limited, hydrate if recur check c dif and stool study 4/ HTN--BP was on low side, improved after hydration. Can restart meds and watch 5/Hypothyroidism--continue Levothyroxine (LT4) 6/ DVT prophylaxis--Eliquis inaptient need due to ongoing work up for AFIB with RVR, med adjustment on cardiac monitoring Quality Stroke Does the patient have a stroke diagnosis?: No VTE Prior VTE?: No VTE Risk Level:: Medical - moderate - high VTE Device Contraindication: Treatment Not Tolerated VTE Drug Contraindication: N/A - Med Ordered
--- NOTE | 2021-12-10 11:20 | PC.NURSE ---
pt a&ox3, vss, pt c/o scalp/head pain feels as though his hair hurts. Flds running. Pt reports that he got very little sleep last night. occ afib on monitor.
--- NOTE | 2021-12-10 11:25 | PC.NURSE ---
RN-RN report called into ED overflow.
--- NOTE | 2021-12-10 13:52 | MHC.CM.PN ---
Patient is having his ECHO; CM spoke with /HCP/Sriram @ [phone]. 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 Home/no services is the goal for dc and CM has initiated and will follow for dc planning. Patient has received Moderna vax X3 and his PCP is DR. Ryan Villafuerte.
[2021-12-11 04:00] VITALS: BP 130/65; PULSE 75; RESP 20; TEMP 37.1; O2SAT 96
[2021-12-11] MEDS: Metoprolol Tartrate 25 MG TABLET PO (05:08)
[2021-12-11 07:28] VITALS: BP 109/58; PULSE 86; RESP 18; TEMP 36.3; O2SAT 97
[2021-12-11] MEDS: Apixaban 5 MG TABLET PO (08:14)
[2021-12-11] MEDS: 0.9 % Sodium Chloride Flush 3 ML SYRINGE IVFLUSH (08:15)
[2021-12-11] MEDS: Metoprolol Tartrate 50 MG TABLET PO (09:41)
--- NOTE | 2021-12-11 11:22 | PM.DS ---
DS: Providers Provider Date of Service: 12/11/21 Date of admission: 12/09/21 18:20 Primary care physician: Tristian Villafuerte MD Consults: 12/09/21 18:22 Consult to Cardiology Routine Consulting Provider: Gianfrnaco Sinha Reason for consultation: new afib, syncope Has provider been notified: No DS: Diagnosis Discharge Diagnosis (1) Hypothyroid: Status: Acute (2) HTN (hypertension): Status: Acute (3) New onset a-fib: Status: Acute (4) Dehydration: Status: Acute (5) WONG (acute kidney injury): Status: Acute DS: Summary Hospital Course Hospital Course: 61 year old male with HTN takes Lisinopril and HCTZ, hypothyroidism on LT4 who has not been feeling since friday 2 days ago, weak, diarrhea, and pooor apetite. The ? has advised? that he goes to ED and he wanted to take shower first, and after getting out of the shower and sitting on the toilet he fainted for about 5 minutes while son and were holding? on to him, no evidence? of seizure. 911 was subsquently to be brought to the ED where he is found to have AFIB with RVR HR 126 highest, and? WONG Creatine 1.56.? He feels a bit better. Hospital course: Patient admitted to the hospital because of dehydration, WONG, AFib with RVR, possible syncope: Dehydration and WONG, orthostasis possible due to diarrhea-which seems to be improved with IV hydration. Patient does not have any further episode of diarrhea possibly initial episode viral diarrhea. Syncopal also probably related to above, no new episodes, likely component of orthostasis probably related to diarrhea. Delon fishman added. Further workup outpatient as per PCP. Hypothyroidism: Continue levothyroxine, monitor TSH outpatient with PCP. AFib with RVR: We have stopped home his blood pressure medication-due to softer blood pressure, metoprolol adjusted as per Cardiology and further management out patiently. follow up as outpatient with pursuing rhythm control as outpatient.? Will require sleep study given his body habitus and history of hypertension and now atrial fibrillation to rule out sleep apnea as the risk factors/causative factor.? Cardio may arrange their own appointment. Above management discussed with the patient in detail length he understand and in agreement with the above plan, time spent 50 minutes and 50% time spent on counseling. Significant findings: As above. Procedures performed: None. Treatment and response: As above. Complications: None. Time Spent with Patient Time attestation: Total time spent providing and/or coordinating discharge services: Discharge coordination time: Greater than 30 minutes Quality: Safe Use of Opioids Does Pt have an Active Cancer Diagnosis on the Problem List?: No Quality: Stroke Does the patient have a stroke diagnosis?: No Physical Exam Vital Signs: Vital Signs: Last Vital Signs Temp 97.4 F 12/11/21 07:28 Pulse 86 12/11/21 07:28 Resp 18 12/11/21 07:28 BP 109/58 L 12/11/21 07:28 Pulse Ox 97 12/11/21 07:28 BMI result Body Mass Index 35.2 Appearance: Alert.? Oriented X3.? not in distress.? Eyes: Pupils equal, round and reactive to light.? Sclera nonicteric.? ENT: Pharynx normal.? Moist mucous membranes. cvs: rrr, [id number] , no murmur res: clear to auscultation ,no rhonchii or wheezing abd: no rebound or guarding ,nt, bs present. ext pulses present , no cyanosis . neuro: axo3 , nonfocal. DS: Data Data Completed and Pending Labs on day of discharge: Preliminary micro results at discharge 12/09/21 15:09 Blood Culture - Preliminary Blood - Venous No growth after 24 hours. 12/09/21 13:54 Blood Culture - Preliminary Blood - Venous No growth after 24 hours. bmp: Sodium 134, potassium 3.5 , BUN 19, creatinine 1.1, bicarb 26, calcium 8.4 Additional Comments Additional comments: ?CT/CT angio chest PE protocol IMPRESSION: No evidence for any acute or chronic pulmonary embolism. ? ECho: Conclusions: - 1.? Normal LV systolic function? 2.? Normal cardiac valvular Doppler? 3.? Normal RV systolic pressure? 4. Trivial pericardial effusion? ?? Discharge Plan Discharge Patient Disposition: Home, Self-Care Discharge Diagnosis: AFib with RVR, syncope, dehydration, WONG Referrals: Tristian Villafuerte MD [Primary Care Provider] - 1 Week Discharge Medications: New metoprolol tartrate 50 mg Tablet 50 mg PO BID Qty: 60 0RF Protocol: Hold for SBP/HR < HOLD for SBP < : 90 HOLD for HR < : 60 (DME) Matilda Knee [id number] Misc See Rx Instructions .ROUTE .MEDSUPPLY Qty: 12 0RF Rx Instructions: As directed Continued levothyroxine 100 mcg tablet 1 tab PO DAILY 0RF Discontinued hydrochlorothiazide 25 mg tablet 1 tab PO DAILY 0RF losartan 100 mg tablet 1 tab PO DAILY 0RF Discharge Orders: Discharge Order (Routine); Ordered 12/11/21 Ordered By: Ramakrishna Pruett Diet: advance to usual diet Activity on Discharge: As tolerated Stand Alone Forms: Patient Portal Discharge page Other Ambulatory Orders: Thyroid Stimulating Hormone (Routine) Timeframe: 1 Week Facility: [facility] - Location: Laboratory Ordered By: Ramakrishna Pruett Care Plan Goals: Patient admitted to the hospital because of dehydration, WONG, AFib with RVR, possible syncope: Dehydration and WONG, orthostasis possible due to diarrhea-which seems to be improved with IV hydration. Patient does not have any further episode of diarrhea possibly initial episode viral diarrhea. Syncopal also probably related to above, no new episodes, likely component of orthostasis probably related to diarrhea. Delon fishman added. Further workup outpatient as per PCP. AFib with RVR: We have stopped home his blood pressure medication-due to softer blood pressure, metoprolol adjusted as per Cardiology and further management out patiently. Hypothyroidism: Continue levothyroxine, monitor TSH outpatient with PCP. Cardio may arrange their own appointment. Health Concerns: As above. Plan of Treatment: As above. Assessment: As above.
--- NOTE | 2021-12-11 11:24 | MHC.CM.PN ---
pt dcd home no skilled services ordered by
[2021-12-11 11:27] VITALS: BP 111/69; PULSE 94; RESP 17; TEMP 36.7; O2SAT 96
--- NOTE | 2021-12-11 11:44 | P.PNCA_ITS ---
Subjective Subjective Date of Service: 12/11/21 <KURT Rodriguez - Last Filed: 12/11/21 11:55> 12/11/21 <Ant Dawkins MD - Last Filed: 12/11/21 13:49> Principal diagnosis: afib <KURT Rodriguez - Last Filed: 12/11/21 11:55> Interval history: Cardiology follow up for afib. Seen at 1000. Today he reports feeling well. No concerning symptoms. No chest pains, palpitation, dizziness, sob, edema. Prior body aches and diarrhea have fully resolved. Ambulating steady in hallways. <KURT Rodriguez - Last Filed: 12/11/21 11:55> Review of Systems Review of Systems as above <KURT Rodriguez Last Filed: 12/11/21 11:55> Yes all other systems are reviewed and are negative <KURT Rodriguez - Last Filed: 12/11/21 11:55> Physical Exam Vital Signs: Last Vital Signs Temp 98.1 F 12/11/21 11:27 Pulse 94 12/11/21 11:27 Resp 17 12/11/21 11:27 BP 111/69 12/11/21 11:27 Pulse Ox 96 12/11/21 11:27 BMI result Body Mass Index 35.2 <KURT Rodriguez - Last Filed: 12/11/21 11:55> Const General: cooperative, healthy appearing, no acute distress, alert and awake <KURT Rodriguez - Last Filed: 12/11/21 11:55> Orientation/consciousness: patient oriented x3 <KURT Rodriguez - Last Filed: 12/11/21 11:55> Neck Neck: Yes normal visual inspection and Yes no JVD <KURT Rodriguez Last Filed: 12/11/21 11:55> Resp Effort & Inspection: normal respiratory effort, able to speak in complete sentences and not labored <KURT Rodriguez Last Filed: 12/11/21 11:55> Auscultation: clear to auscultation bilaterally, no crackles, no rales, no rhonchi and no wheezes <KURT Rodriguez Last Filed: 12/11/21 11:55> Cardio Rate: regular rate <KURT Rodriguez Last Filed: 12/11/21 11:55> Rhythm: abnormal rhythm <KURT Rodriguez - Last Filed: 12/11/21 11:55> Heart sounds: S1 normal heart sound present and S2 normal heart sound present <KURT Rodriguez Last Filed: 12/11/21 11:55> Peripheral pulses: Peripheral pulses 2+ throughout <KURT Rodriguez Last Filed: 12/11/21 11:55> GI Inspection: Yes normal to inspection <KURT Rodriguez Last Filed: 12/11/21 11:55> Neuro General: patient oriented x3 <KURT Rodriguez Last Filed: 12/11/21 11:55> Extrem General: Yes normal to inspection and No edema <KURT Rodriguez Last Filed: 12/11/21 11:55> Objective Labs and Meds Result diagrams: : 12/10/21 06:19 12/10/21 06:19 <KURT Rodriguez Last Filed: 12/11/21 11:55> Progress Note: A&P Assessment and plan (1) New onset a-fib: Status: Acute <KURT Rodriguez Last Filed: 12/11/21 11:55> Assessment and Plan: New finding of afib this admit. No prior known hx. No reports of palpitations or sob. EKG showed afib, incomplete RBBB, no acute ST/ T wave abn, rate 99. Echo showed EF 60-65%, normal valves, LA normal size, RA not well visualized. He was treated with Afib rate control using Metoprolol. Tele shows afib rates 50-70s at rest and up to 120s with walking in halls. Remains asymptomatic. Has been started on Eliquis for anticoagulation. Spent time with him going over the diagnosis of afib, sroke risk with afib and need for anticoagulation. He may be discharge with Metoprolol tartrate 50mg bid and Eliquis 5 mg bid. Cr 1.10 yesterday. Plan for outpt Sleep study to eval for JUDI. We will arrange for outpt cardiology follow up. If remains in afib then outpt cardioversion may be needed. <KURT Rodriguez - Last Filed: 12/11/21 11:55> New finding of afib this admit. No prior known hx. No reports of palpitations or sob. EKG showed afib, incomplete RBBB, no acute ST/ T wave abn, rate 99. Echo showed EF 60-65%, normal valves, LA normal size, RA not well visualized. He was treated with Afib rate control using Metoprolol. Tele shows afib rates 50-70s at rest and up to 120s with walking in halls. Remains asymptomatic. Has been started on Eliquis for anticoagulation. Spent time with him going over the diagnosis of afib, sroke risk with afib and need for anticoag ulation. He may be discharge with Metoprolol tartrate 50mg bid and Eliquis 5 mg bid. Cr 1.10 yesterday. Plan for outpt Sleep study to eval for JUDI. We will arrange for outpt cardiology follow up. If remains in afib then outpt cardioversion may be needed. Patient seen and examined. No cardiac symptoms to report. Atrial fibrillation better rate control. Continue metoprolol 50 mg b.i.d. for rate control. Outpatient Holter monitor will be pursued. Continue full oral anticoagulation with Eliquis, CHADSVASc score of 1. We discussed about long- term use of oral anticoagulation therapy. Please continue for short-term prior to cardioversion. Follow-up follow up in the office in 3 weeks time. Continue metoprolol for control of his blood pressure. <Ant Dawkins MD - Last Filed: 12/11/21 13:49> (2) HTN (hypertension): Status: Acute <KURT Rodriguez - Last Filed: 12/11/21 11:55> Assessment and Plan: Had been on HCTZ and losartan at home. Had presumed viral illness with diarrhea on admit. Had WONG in setting of med use with dehydration. WONG improved with fluids and stopping home meds. He is now on Metoprolol for afib. BP 111/69. Continue Metoprolol. Keep off HCTZ and Losartan. <KURT Rodriguez - Last Filed: 12/11/21 11:55> (3) WONG (acute kidney injury): Status: Acute <KURT Rodriguez Last Filed: 12/11/21 11:55> Fall Risk Details Current Medications: Current Medications Apixaban (Apixaban 5 Mg Tablet) 5 mg PO BID [facility] Last Admin: 12/11/21 08:14 Dose: 5 mg Documented by: Melatonin (Melatonin 3 Mg Tablet) 6 mg PO BEDTIME PRN PRN Reason: Insomnia Metoprolol Tartrate (Metoprolol Tartrate 50 Mg Tablet) 50 mg PO BID [facility]; Sacha col Last Admin: 12/11/21 09:41 Dose: 50 mg Documented by: Ondansetron HCl (Ondansetron Hcl 4 Mg/2 Ml Vial) 4 mg IVPUSH Q8H PRN PRN Reason: Nausea and Vomiting Pharmacy Consult (Consult Rx Perform Med Rec) 1 each MISCELLANE ONCE PRN PRN Reason: Consult order Sodium Chloride (0.9 % Sodium Chloride Flush 3 Ml Syringe) 3 ml IVFLUSH QSHIFT [facility] Last Admin: 12/11/21 08:15 Dose: 3 ml Documented by: <KURT Rodriguez - Last Filed: 12/11/21 11:55> Time Spent With Patient Time: Total time spent is greater than 50% in coordination of care (as documented) at patient's floor/unit and/or counseling patient: <KURT Rodriguez Last Filed: 12/11/21 11:55> Progress Note: Quality Stroke Does the patient have a stroke diagnosis?: No <KURT Rodriguez Last Filed: 12/11/21 11:55> Procedures Date of Service Date of Service: 12/11/21 <KURT Rodriguez - Last Filed: 12/11/21 11:55>
== END 2021-12-11 14:00 | disposition home or self-care (01) | DRG 201 ==
LOC: HO.ED 17:58 → HO.EDOVER 18:26 → HO.IMC 12-10 08:25 → HO.EDOVER 12-10 08:47 → HO.IMC 12-10 13:18
PROVIDERS: Physician Assistant; Admitting Provider Internal Medicine; Emergency Provider Emergency Medicine; PCP Specialist; Visit Provider Internal Medicine
DX: I48.91 Unspecified atrial fibrillation (principal); N17.9 Acute kidney failure, unspecified; A08.4 Viral intestinal infection, unspecified; I95.1 Orthostatic hypotension; E86.0 Dehydration; I10 Essential (primary) hypertension; E03.9 Hypothyroidism, unspecified; Z20.822 Contact with and (suspected) exposure to COVID-19; Z87.891 Personal history of nicotine dependence; Z79.01 Long term (current) use of anticoagulants; Z79.890 Hormone replacement therapy; Z79.899 Other long term (current) drug therapy
CPT/HCPCS: 36415; 71045; 71275; 80048; 80061; 80076; 81003; 83605; 83690; 83735; 83880; 84439; 84443; 84484; 85007; 85025; 85027; 85379; 85610; 85730; 87040; 87502; 87635; 93005; 93306; 96361; 96374; 99285; Q9957; Q9967

== ENCOUNTER 2021-12-18 15:47 | Outpatient (REF) | payer BC, SELFPAY ==
[2021-12-18 17:09] LABS: Thyroid Stimulating Hormone 1.06 uIU/mL (0.32-4.0)
== END 2021-12-18 15:48 | disposition home or self-care (01) ==
LOC: HO.LAB 15:47
PROVIDERS: PCP Internal Medicine; Visit Provider Internal Medicine
DX: E03.9 Hypothyroidism, unspecified (principal)
CPT/HCPCS: 36415; 84443

== ENCOUNTER → 2022-01-09 15:31 | Outpatient (REF) | payer BC, SELFPAY | LOC: HO.SL 15:31 | PROVIDERS: PCP Internal Medicine; Visit Provider Nurse Practitioner Family | DX: G47.33 Obstructive sleep apnea (adult) (pediatric) (principal); G47.10 Hypersomnia, unspecified; I10 Essential (primary) hypertension; I48.91 Unspecified atrial fibrillation | CPT/HCPCS: 95806 ==

== ENCOUNTER → 2022-01-14 12:10 | Outpatient (BNVA) | payer BC, SELFPAY | PROVIDERS: PCP Internal Medicine; Referring Provider Internal Medicine; Visit Provider Internal Medicine Cardiovascular Disease | DX: I48.0 Paroxysmal atrial fibrillation (principal); I10 Essential (primary) hypertension; R07.9 Chest pain, unspecified | CPT/HCPCS: 93005 ==

== ENCOUNTER → 2022-01-24 08:21 | Outpatient (REF) | payer BC, SELFPAY ==
--- NOTE | ~2022-01-24 | NM_ITS ---
Myocardial perfusion study Indication: Chest pain to evaluate for myocardial ischemia Technique: The patient was brought in for a Lexiscan perfusion study on 01/24/2022. Patient performed low-level exercise and was injected 0.4 mg of Lexiscan intravenously. Within a minute of injection, 35 mCi of sestamibi was given intravenously. Images were obtained using the SPECT gamma camera interlaced with the gating device. Images were obtained in supine position. Resting perfusion study was performed on 01/28/2022. Patient was administered 35 mCi of sestamibi intravenously at rest. Images were then obtained in supine position. Images obtained with and without CT attenuation. Total DLP 108 mGy-cm. Images were processed with the software and compared side to side in short axis, horizontal long axis and vertical long axis views. Findings: The stress perfusion study showed non attenuated images show mildly reduced uptake in the inferior wall of the LV myocardium. Remainder of the LV myocardium is normally perfused. Attenuation corrected images show minimally reduced uptake in the apex of the LV myocardium.. The gated study shows normal LV systolic function with calculated LVEF of 68%. LV cavity is normal in size. The gated study shows normal systolic wall thickening and contraction of segments. Resting study shows no change in perfusion pattern compared to stress perfusion study. Gating at rest reveals normal systolic wall motion with ejection fraction at 64%. The findings are consistent with normal myocardial perfusion. NM/NM cardiolite stress test Impression: 1. Myocardial perfusion imaging study shows normal myocardial perfusion 2. Gated LVEF is 68% 3. Transient ischemic dilatation not present EKG is nondiagnostic for ischemia
--- NOTE | 2022-01-24 08:29 | HM_ITS ---
* Total monitoring time 3 days and 3 hours. * Underlying rhythm is sinus. Average rate 67/Min. Range 46 to 107/Min. * No atrial fibrillation or flutter. * Occasional supraventricular ectopy with minimal burden. * Occasional ventricular ectopy with minimal burden. * No patient events. MTDD
--- NOTE | 2022-01-24 08:29 | CA_ITS ---
Acquisition Time: 2022-01-24 08:32:26 Total Exercise Time: 00:04:24 Test Indications: Chest Pain Medications: Protocol: SANIA Max HR: 122 BPM 77% of Pred: 157 BPM Max BP: 228/068 mmHG Max Work Load: 6.2 METS Exercise stress test with exercise 4 min 24 sec of Sania protocol, achieving 78% MPHR with hypertensive response to exercise with baseline BP 132/54 and BP at peak 228/64. Exercise stoppped and pt assisted to sitting position. He then admitted to have a 1/10 anterior chest tightness, like indigestion which did resolve with rest. Once BP down to 144/72 and chest tightness resolved, testing was changed to a pharmacological stress test with Lexiscan injection, while sitting and kicking his legs, without anginal symptoms, with isolated PVC, with normotensive response to injection, with nondiagnostic EKG for ischemia. in recovery he reported feeling funny in his head and was treated with Aminophylline 75mg IVP to reverse Lexiscan with resolution of symptom. Nuclear images pending. Test reviewed with Dr Sinha. Referred By: Ant Dawkins Overread By: CARLOS HOPKINS
== END ==
LOC: HO.CARD 08:21
PROVIDERS: Visit Provider Internal Medicine Cardiovascular Disease
DX: R07.9 Chest pain, unspecified (principal); I48.0 Paroxysmal atrial fibrillation
CPT/HCPCS: 78452; 93017; 93242; A9500; J0280; J2785

== ENCOUNTER 2022-08-15 13:54 | Outpatient (REF) | payer BC, SELFPAY ==
[2022-08-15 14:22] LABS: Hematocrit 46.5 % (42.0-52.0); Hemoglobin 15.2 g/dl (14.0-18.0); Mean Corpuscular HGB Conc 32.7 g/dl (31.0-36.0); Mean Corpuscular Hemoglobin 29.3 pg (27.0-33.0); Mean Corpuscular Volume 89.6 fL (80.0-98.0); Platelet Count 372 X10*3/uL (160-400); Red Blood Count 5.19 X10*6/uL (4.60-5.80); Red Cell Distribution Width 14.2 % (11.0-16.0); White Blood Count 15.6 X10*3/uL (4.8-10.8)
[2022-08-15 15:06] LABS: Anion Gap 12 (12-20); Blood Urea Nitrogen 28 mg/dL (9-16); Calcium 10.1 mg/dL (8.4-10.2); Carbon Dioxide 31 mmol/L (22-29); Chloride 101 mmol/L (96-108); Estimated Glomerular Filt Rate > 60; Glucose Random 82 mg/dL (60-115); Potassium 4.3 mmol/L (3.3-5.1); Sodium 140 mmol/L (135-145)
== END 2022-08-15 13:55 | disposition home or self-care (01) ==
LOC: HO.LAB 13:54
PROVIDERS: Visit Provider Internal Medicine Cardiovascular Disease
DX: I48.0 Paroxysmal atrial fibrillation (principal)
CPT/HCPCS: 36415; 80048; 85027

== ENCOUNTER → 2022-09-25 09:07 | Outpatient (BNVA) | payer BC, SELFPAY | PROVIDERS: PCP Internal Medicine; Referring Provider Internal Medicine; Visit Provider Internal Medicine Cardiovascular Disease | DX: R94.31 Abnormal electrocardiogram [ECG] [EKG] (principal) | CPT/HCPCS: 93005 ==

== ENCOUNTER → 2022-10-01 11:04 | Outpatient (REF) | payer BC, SELFPAY ==
--- NOTE | 2022-10-01 11:07 | HM_ITS ---
Conclusion: 1. Patient was monitored for total period of 3 days 2. Baseline was normal sinus rhythm with average heart of 75 beats per minute 3. No significant pauses or bradycardia noted 4. Total of 7875 PVCs accounting for 2.7% of total beats account for frequent PVCs 5. Patient reported to events correlated with sinus rhythm MTDD
== END ==
LOC: HO.CARD 11:04
PROVIDERS: Visit Provider Internal Medicine Cardiovascular Disease
DX: I48.0 Paroxysmal atrial fibrillation (principal); R00.2 Palpitations
CPT/HCPCS: 93242

== ENCOUNTER → 2023-07-29 08:57 | Outpatient (REF) | payer BC, SELFPAY ==
--- NOTE | 2023-07-29 09:03 | CA_ITS ---
Transthoracic Echocardiogram Patient (Last, First, Middle): Cholo Polo M Gender: Male Date of : 1960 Age: 62 Procedure Date: 07/29/2023 Procedure Type: Transthoracic Echocardiogram Location: OP Height: 182.88 cm Weight: 113.4 kg BSA: 2.34 m2 Heart Rate: bpm BP: 136 / 70 mmHg Handcrew Foreman: RAQUEL Referring MD: Ant Dawkins MD Symptoms: I48.0 - Paroxysmal atrial fibrillation Study Quality: Adequate ECG Rhythm: Sinus Conclusions: - The left ventricular systolic function is normal. The calculated ejection fraction is 62% by biplane method. - No obvious valvular pathology seen on this study. Findings Left Ventricle Normal left ventricular cavity size. The left ventricular systolic function is normal. The calculated ejection fraction is 62% by biplane method. There is no evidence of regional wall motion abnormalities. Diastolic function is normal for age. There is moderate septal asymmetric hypertrophy. LV peak GLS -18.4%. Right Ventricle Normal right ventricular cavity size and systolic function. Atria Both atria are normal in size. Aortic Valve There is a normal trileaflet aortic valve. There is no aortic valve stenosis. There is no aortic valve regurgitation. Mitral Valve The mitral valve appears normal. There is no mitral valve regurgitation. There is no mitral valve stenosis. Pulmonic Valve The pulmonic valve is likely normal. Tricuspid Valve There is trace tricuspid valve regurgitation. Tricuspid regurgitation envelope is inadequate for calculation of right ventricular systolic pressure. Great Vessels The asc aorta is normal in size. Small plaque is seen in the sinuses of Valsalva. Venous The inferior vena cava is normal in size and collapses greater than 50% with inspiration. Pericardium/Pleural There is no evidence of pericardial effusion. Prior Study Comparison No significant change compared to prior study dated: 12/10/2021. Recommendations, Care & Conclusions No obvious valvular pathology seen on this study. Measurements 2D Linear Measurements IVSd: 1.34 0.6-0.9/0.6-1.0 cm LVIDd: 4.78 3.9-5.3/4.2-5.9 cm LVIDd Index: 2.02 2.4-3.2/2.2-3.1 cm/m2 LVIDs: 2.52 2.0-3.6 cm LVPWd: 0.97 0.7-1.1 cm LA Diam: 3.70 2.7-3.8/3.0-4.0 cm LAIDs Index: 1.56 1.5-2.3 cm/m2 LV Mass: 257.23 67-162/88-224 g LV Mass Index: 108.54 43-95/49-115 g/m2 LVOT Diam: 2.40 3.0+(-)1.3 cm 2D Volumes RA ESV A/L: 27.90 19-21 ML/M2 2D Systolic Function EF 4C: 59.60 >55% EF 2C: 66.90 >55% EF BiP: 62.00 >55% Mitral Valve MV Pk E: 0.97 MV PK A: 0.66 MV Decel Time: 208.00 E/A: 1.50 E'Lateral: 12.80 E'Medial: 9.68 E/E' Med: 10.00 E/E' Lat: 7.60 PHT: 61.00 MVA PHT: 3.61 Decel Forest: 4.66 Aortic Valve AoV Pk Lazaro: 1.53 AoV Mn Lazaro: 0.98 AoV VTI: 0.34 AoV Pk Grad: 9.00 Aov Mn Grad: 5.00 ALBERTO Cont.VTI: 4.03 LVOT LVOT Pk Lazaro: 1.40 LVOT Mn Lazaro: 0.78 LVOT VTI: 0.29 LVOT Pk Grad: 8.00 LVOT Mn Grad: 3.00 LVOT Diam: 2.40 LVOT Area: 4.52 Diastolic Function MV Pk E: 0.97 MV Pk A: 0.66 E/A: 1.50 E'Medial: 9.68 E/E' Med: 10.00 E' Laterial: 12.80 E/E' Lat: 7.60 Right Ventricle TAPSE (mm): 3.20 TVS' Lazaro: 14.50 Tricuspid Valve RA Press: 3.00 Great Vessels Aorta Sinus of Valsalva: 3.68 2.0-3.[address] [place]: 2.50 1.7-3.4 cm Ao Asc: 3.30 2.1-3.4 cm Updated in Other Vendor System with Status of Final Gianfranco Sinha MD electronically signed on 07/29/2023 1:18:44 PM with status of Final
== END ==
LOC: HO.CARD 08:57
PROVIDERS: PCP Internal Medicine; Visit Provider Internal Medicine Cardiovascular Disease
DX: I48.0 Paroxysmal atrial fibrillation (principal)
CPT/HCPCS: 93306; 93356

== ENCOUNTER → 2023-07-29 09:03 | Outpatient (BNV) | payer BC, SELFPAY | PROVIDERS: PCP Internal Medicine; Visit Provider Internal Medicine | DX: I48.0 Paroxysmal atrial fibrillation (principal) | CPT/HCPCS: 93306 ==

== ENCOUNTER 2023-08-14 13:17 | Outpatient (AMB) | payer BC, SELFPAY ==
[2023-08-14 13:21] VITALS: PULSE 74; BMI 35.1
--- NOTE | 2023-08-14 13:21 | A.OFFVIS_ITS ---
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 Knee Lbinfb-[facility] [place] As directed hydrochlorothiazide 25 mg PO DAILY levothyroxine 100 mcg PO DAILY metoprolol succinate ER (Toprol XL) 25 mg PO DAILY rivaroxaban (Xarelto) 20 mg PO DAILY HPI HPI Comments History of Present Illness Details Cholo comes for follow-up after 1 year. He undergone a coronary CT calcium score in October which was elevated. Since then he was started on atorvastatin therapy. He has not had any repeat lipids since then. 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 He then has to sit down for 5 minutes and the symptoms resolved. He denies any symptoms with exertion going up of flight of stairs. His blood pressures been well controlled. He had 1 episode while he was driving his car he felt like his atrial fibrillation episode was coming on. He pulled and taken exert and subsequently symptoms subsided. He subsequently was diagnosed with a cold. He had another episode very felt like it atrial fibrillation episode for about 5 minutes. He has had no bleeding issues or neurologic events. Denies any lightheadedness, syncope. Echocardiogram done in July showed normal LV ejection fraction without major wall motion abnormalities with no major valvular abnormality [facility] Medical History CAD (coronary artery disease) Syncope WONG (acute kidney injury) Dehydration Paroxysmal atrial fibrillation Hypothyroid HTN (hypertension) New onset a-fib Family History Mother Diabetes HTN (hypertension) CAD (coronary artery disease) Social History Household Members: Spouse Housing: House Do you presently have visiting nurse or other home services: No Alcohol intake: current Alcohol intake frequency: holidays/special occasions only Alcohol type: beer and hard liquor Patient Tobacco Use Status: Former Tobacco user Advance Directives Date on File: 12/10/21 service: No Current occupational status: employed Review of Systems Const Denies chills, Denies fatigue, Denies fever(s), Denies frequent falls, Denies weakness, Denies weight gain and Denies weight loss ENT Denies dizziness Card Denies chest pain, Denies leg edema, Denies lightheadedness, Denies palpitations, Denies dyspnea, Denies dyspnea on exertion, Denies orthopnea and Denies other (loss of consciousness) Resp Denies cough, Denies dyspnea and Denies dyspnea on exertion GI Denies hematochezia and Denies change in stool character Musc Denies abnormal gait, Denies muscle weakness, Denies numbness, Denies radiating pain into limb and Denies tingling Neuro Denies abnormal gait, Denies dizziness, Denies frequent falls, Denies numbness, Denies tingling and Denies weakness Endo Denies fatigue and Denies palpitations Physical Exam Vital Signs: Last Vital Signs Pulse 74 08/14/23 13:21 BMI result Body Mass Index 35.1 Const General: cooperative, comfortable, no acute distress, alert, awake and anxious Orientation/consciousness: patient oriented x3 Neck Neck: Yes trachea midline, Yes supple and Yes no JVD Resp Auscultation: clear to auscultation bilaterally Cardio Jugular venous distension: no JVD Palpation: normal PMI Rate: regular rate Rhythm: regular rhythm Heart sounds: S1 normal heart sound present, S2 normal heart sound present, no click, no gallops, no murmurs and no rubs GI Auscultation: normal bowel sounds Skin General skin exam: no rashes or lesions noted Neuro General: patient oriented x3 and no focal motor deficits Extrem General: Yes no clubbing, cyanosis or edema Office Procedures EKG Details: EKG shows normal sinus rhythm right bundle-branch block with left axis deviation with Q-waves in inferior leads [id number], Complete Assessment & Plan Assessment & Plan (1) Exertional chest pain: Code(s): R07.9 - Chest pain, unspecified Plan: Patient persistent and concerning symptoms of exertional chest discomfort 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 I would suggest further testing for this with coronary CTA. If this is being booked way out may require invasive cardiac catheterization. This was discussed with him. Currently on full oral anticoagulation with Xarelto. Also metoprolol therapy and amlodipine therapy. Advised to continue the both. If he has progressive symptoms with less exertion is advised to call my office right away. Continue statin therapy. Advised lipid panel in near future with goal LDL less than 70 mg/dL. (2) CAD (coronary artery disease): Code(s): I25.10 - Atherosclerotic heart disease of [place] coronary artery without angina pectoris Plan: CAD presents with coronary calcium score with concerning symptoms exertional angina suggestive of obstructive coronary artery disease. Continue dual antianginal therapy with amlodipine as well as metoprolol. Continue aggressive blood pressure control which is currently well optimized. Switch metoprolol to nighttime as he is having some symptoms of fatigue during day work. Continue statin therapy. (3) Paroxysmal atrial fibrillation: Code(s): I48.0 - Paroxysmal atrial fibrillation Plan: Paroxysmal atrial fibrillation without any significant clinical recurrence pretty had 2 episodes 1 in the setting of viral illness. We discussed about potential triggers the systemic illnesses. Advised to continue metoprolol thera py. Continue full oral anticoagulation, currently on Xarelto 20 mg daily. Semi annual renal function test should be pursued. Will follow up in the clinic in 6 weeks to 2 months time. Orders: Orders CT Cardiac Coronary Angio 1 Week R07.9 - Chest pain, unspecified Lipid Panel Today I25.10 - Atherosclerotic heart disease of [place] coronary artery without angina pectoris Basic Metabolic Panel Today I25.10 - Atherosclerotic heart disease of [place] coronary artery without angina pectoris Coding Level of Care Code Est Pt Level 4 (25576) Diagnoses Exertional chest pain R07.9 CAD (coronary artery disease) I25.10 Paroxysmal atrial fibrillation I48.0 CPT Codes EKG - CPT: 47708-[id number], Complete ([id number])
== END 2023-08-14 14:10 | disposition home or self-care (01) ==
PROVIDERS: Visit Provider Internal Medicine Cardiovascular Disease
DX: R07.9 Chest pain, unspecified (principal); I25.10 Atherosclerotic heart disease of native coronary artery without angina pectoris; I48.0 Paroxysmal atrial fibrillation
CPT/HCPCS: 93010; 99214

== ENCOUNTER → 2023-08-14 13:17 | Outpatient (BNVA) | payer BC, SELFPAY | PROVIDERS: Visit Provider Internal Medicine Cardiovascular Disease | DX: R07.9 Chest pain, unspecified (principal); I25.10 Atherosclerotic heart disease of native coronary artery without angina pectoris; I48.0 Paroxysmal atrial fibrillation | CPT/HCPCS: 93005 ==

== ENCOUNTER 2023-09-12 07:40 | Outpatient (REF) | payer BC, SELFPAY ==
[2023-09-12 08:16] LABS: Hematocrit 46.4 % (42.0-52.0); Hemoglobin 15.2 g/dl (14.0-18.0); Mean Corpuscular HGB Conc 32.8 g/dl (31.0-36.0); Mean Corpuscular Hemoglobin 28.4 pg (27.0-33.0); Mean Corpuscular Volume 86.7 fL (80.0-98.0); Mean Platelet Volume 10.2 fL (9.4-12.4); Platelet Count 350 X10*3/uL (160-400); Red Blood Count 5.35 X10*6/uL (4.60-5.80); Red Cell Distribution Width 13.8 % (11.0-16.0); White Blood Count 8.2 X10*3/uL (4.8-10.8)
[2023-09-12 08:24] LABS: INTERNATIONAL NORM RATIO 1.1 (0.9-1.1); Prothrombin Time 13.9 SEC (11.1-13.3)
[2023-09-12 08:57] LABS: Anion Gap 15 (12-20); Blood Urea Nitrogen 18 mg/dL (9-16); Calcium 9.8 mg/dL (8.4-10.2); Carbon Dioxide 30 mmol/L (22-29); Chloride 103 mmol/L (96-108); Cholesterol 155 mg/dL (<200); Estimated Glomerular Filt Rate > 60; Glucose Random 122 mg/dL (60-115); HDL Cholesterol 48 mg/dL (>40); LDL Cholesterol Calculated 91 mg/dL (<100); Potassium 4.2 mmol/L (3.3-5.1); Sodium 144 mmol/L (135-145); Triglycerides 82 mg/dL (<150)
== END 2023-09-12 07:41 | disposition home or self-care (01) ==
LOC: HO.LAB 07:40
PROVIDERS: PCP Internal Medicine; Referring Provider Internal Medicine; Visit Provider Internal Medicine Cardiovascular Disease
DX: R07.9 Chest pain, unspecified (principal); I25.10 Atherosclerotic heart disease of native coronary artery without angina pectoris; I48.0 Paroxysmal atrial fibrillation
CPT/HCPCS: 36415; 80048; 80061; 85027; 85610

== ENCOUNTER → 2023-09-23 23:59 | Outpatient (BNV) | payer BC, SELFPAY | PROVIDERS: PCP Internal Medicine; Visit Provider Internal Medicine Cardiovascular Disease | DX: I20.89 Other forms of angina pectoris (principal) | CPT/HCPCS: 92928; 92978; 93458; 93571; 99152 ==

== ENCOUNTER 2023-10-07 08:47 | Outpatient (AMB) | payer BC, SELFPAY ==
[2023-10-07 09:31] VITALS: BP 120/52; PULSE 57; BMI 35.9
--- NOTE | 2023-10-07 09:31 | A.OFFVIS_ITS ---
Intake Vital Signs 10/07/23 09:31 Height 5 ft 10 in Weight 250 lb 7.122 oz BMI 35.9 BP 120/52 L Blood Pressure Location Lt brachial Position Sitting Pulse 57 Pulse Source Pulse Oximeter Intake Visit Reasons: Follow up post cardiac cath Intake Note: f/up podt cardiac cath pt its feeling fine. 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 Knee [facility] [place] As directed hydrochlorothiazide 25 mg PO DAILY levothyroxine 100 mcg PO DAILY metoprolol succinate ER (Toprol XL) 25 mg PO DAILY rivaroxaban (Xarelto) 20 mg PO DAILY HPI Follow up post cardiac cath HPI Details Cholo is a 62-year-old male with past medical history of hypertension, hyperlipidemia, paroxysmal atrial fibrillation, elevated calcium score, recent reports of exertional chest discomfort who underwent cardiac catheterization and received CELESTINE to the proximal LAD. Today he reports that he is feeling much better since his stent placement. His prior chest discomfort with exertion and exertional fatigue has fully resolved. He feels that he is 20 years younger. No chest discomfort at rest or with activity at this point. No shortness of breath, palpitations, lightheadedness, presyncope, syncope, PND, orthopnea. He does have sock markings noted. 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 He is taking all meds as directed. He is interested in cardiac rehab. Daughter is present. [facility] Medical History CAD (coronary artery disease) Syncope WONG (acute kidney injury) Dehydration Paroxysmal atrial fibrillation Hypothyroid HTN (hypertension) New onset a-fib Family History Mother Diabetes HTN (hypertension) CAD (coronary artery disease) Social History Household Members: Spouse Housing: House Do you presently have visiting nurse or other home services: No Alcohol intake: current Alcohol intake frequency: holidays/special occasions only Alcohol type: beer and hard liquor Patient Tobacco Use Status: Former Tobacco user Advance Directives Date on File: 12/10/21 service: No Current occupational status: employed Review of Systems Const All systems reviewed & are unremarkable except as noted in HPI and below Denies chills, Denies fatigue, Denies fever(s), Denies frequent falls, Denies weakness, Denies weight gain and Denies weight loss ENT Denies dizziness Card Denies chest pain, Denies leg edema, Denies lightheadedness, Denies palpitations, Denies dyspnea and Denies dyspnea on exertion Resp Denies cough, Denies dyspnea and Denies dyspnea on exertion GI Denies hematochezia Musc Denies abnormal gait, Denies muscle weakness, Denies numbness, Denies radiating pain into limb and Denies tingling Neuro Denies abnormal gait, Denies dizziness, Denies frequent falls, Denies numbness, Denies tingling and Denies weakness Endo Denies fatigue and Denies palpitations Physical Exam Vital Signs: Last Vital Signs Pulse 57 10/07/23 09:31 BP 120/52 L 10/07/23 09:31 BMI result Body Mass Index 35.9 Const General: cooperative, healthy appearing, comfortable and no acute distress Orientation/consciousness: patient oriented x3 Neck Neck: Yes normal visual inspection and Yes no JVD Carotids: normal carotid upstroke Chest Chest palpation & inspection: normal inspection of the chest Resp Effort & Inspection: normal respiratory effort Auscultation: clear to auscultation bilaterally, no crackles, no rales, no rhonchi and no wheezes Cardio Jugular venous distension: no JVD Rate: regular rate Rhythm: regular rhythm Heart sounds: S1 normal heart sound present, S2 normal heart sound present, no gallops, no murmurs and no rubs Peripheral pulses: Peripheral pulses 2+ throughout Skin General skin exam: no rashes or lesions noted Neuro General: patient oriented x3 Extrem Other: sock markings Right radial cath site with easily palpable radial pulse, normal right hand assessment General: Yes normal to inspection and No calf tenderness Psych Appearance: grossly normal Mental Status: mental status grossly normal Speech and movement: Normal speech and movement present Assessment & Plan Assessment & Plan (1) CAD (coronary artery disease): Code(s): I25.10 - Atherosclerotic heart disease of [place] coronary artery without angina pectoris Plan: Recent coronary calcium score elevated at 142. Reports of exertional chest discomfort and fatigue. Echocardiogram done 07/29/2023 showed EF 62%, no valve abnormalities and no regional wall motion abnormalities. Prior nuclear stress test done 01/2022 showed normal myocardial perfusion imaging. With recent symptoms he underwent cardiac catheterization on 09/23/2023 showing proximal LAD 80% stenosis, angioplasty and stent placed. Today he reports much improvement in his symptoms since that time. He has full resolution of his chest discomfort and improved activity tolerance. Catheterization findings reviewed with him in detail. He has not on aspirin as he is on Plavix and Xarelto. Need for each medication reviewed. Continue atorvastatin with ideal LDL goal less than 70. C ontinue metoprolol. Signs and symptoms of angina reviewed. Will order cardiac rehab. Cardiology follow-up 3-4 months, sooner if needed. (2) S/P cardiac cath: Comment: 09/23/2023, left main separate ostia, lad proximal 80% stenosis, angioplasty and stent placed, left circumflex, RCA normal Code(s): Z98.890 - Other specified postprocedural states Plan: Right radial catheterization site well healed (3) Stented coronary artery: Comment: Proximal LAD stent Code(s): Z95.5 - Presence of coronary angioplasty implant and graft Plan: As above (4) Paroxysmal atrial fibrillation: Code(s): I48.0 - Paroxysmal atrial fibrillation Plan: History of paroxysmal atrial fibrillation in the setting of viral illness. No recent reports of heart palpitations. Pulse is very regular on examination today, no concern for AFib at present. Continue on metoprolol XL 25 mg daily. Continues Xarelto 20 mg daily. Labs done 09/12/2023 showed creatinine 0.89, GFR greater than 60. (5) HTN (hypertension): Code(s): I10 - Essential (primary) hypertension Plan: Well controlled at present. Continue hydrochlorothiazide, metoprolol and amlodipine. He does have sock markings noted on exam. Mild ankle edema at times could be related to the amlodipine. No indication for further diuretics at present. (6) Exertional chest pain: Code(s): R07.9 - Chest pain, unspecified Plan: Resolved (7) Hyperlipidemia: Code(s): E78.5 - Hyperlipidemia, unspecified Plan: [place] LDL goal less than 70. Labs done 09/12/2023 showed LDL 91. At this time will increase his atorvastatin up to 40 mg daily. Plan for fasting lipid in 2-3 months, prior to his next visit. Plan Time spent on chart review, documentation, interview assess Orders: Orders Lipid Panel Today E78.5 - Hyperlipidemia, unspecified Liver Panel Today E78.5 - Hyperlipidemia, unspecified Cardiac Rehab Today I25.10 - Atherosclerotic heart disease of [place] coronary artery without angina pectoris, Z95.5 - Presence of coronary angioplasty implant and graft, Z98.890 - Other specified postprocedural states Medications: New atorvastatin 40 mg PO BEDTIME 90 tabs 3RF Discontinued atorvastatin Discontinued Reason: Doctor's Order 20 mg PO BEDTIME 90 tabs 3RF Coding Level of Care Code Est Pt Level 4 (38034) Diagnoses CAD (coronary artery disease) I25.10 S/P cardiac cath Z98.890 Stented coronary artery Z95.5 Paroxysmal atrial fibrillation I48.0 HTN (hypertension) I10 Exertional chest pain R07.9 Hyperlipidemia E78.5
== END 2023-10-07 10:12 | disposition home or self-care (01) ==
PROVIDERS: PCP Internal Medicine; Visit Provider Nurse Practitioner Family
DX: I25.10 Atherosclerotic heart disease of native coronary artery without angina pectoris (principal); Z98.890 Other specified postprocedural states; Z95.5 Presence of coronary angioplasty implant and graft; I48.0 Paroxysmal atrial fibrillation; I10 Essential (primary) hypertension; R07.9 Chest pain, unspecified; E78.5 Hyperlipidemia, unspecified
CPT/HCPCS: 99214

== ENCOUNTER → 2023-10-07 08:47 | Outpatient (BNVA) | payer BC, SELFPAY | PROVIDERS: PCP Internal Medicine; Visit Provider Nurse Practitioner Family ==

== ENCOUNTER 2024-01-09 07:25 | Outpatient (REF) | payer BC, SELFPAY ==
[2024-01-09 09:51] LABS: Alanine Aminotransferase 24 U/L (0-40); Albumin Level 4.1 g/dL (3.5-5.0); Alkaline Phosphatase 74 U/L (39-117); Anion Gap 15 (12-20); Aspartate Amino Transferase 18 U/L (5-37); Bilirubin Direct 0.2 mg/dL (0.0-0.5); Bilirubin Total 0.6 mg/dL (0.0-1.0); Blood Urea Nitrogen 19 mg/dL (9-16); Calcium 9.9 mg/dL (8.4-10.2); Carbon Dioxide 27 mmol/L (22-29); Chloride 101 mmol/L (96-108); Cholesterol 136 mg/dL (<200); Estimated Glomerular Filt Rate > 60; Glucose Random 103 mg/dL (60-115); HDL Cholesterol 43 mg/dL (>40); LDL Cholesterol Calculated 81 mg/dL (<100); Potassium 3.5 mmol/L (3.3-5.1); Sodium 139 mmol/L (135-145); Total Protein 6.5 g/dL (6.5-8.0); Triglycerides 62 mg/dL (<150)
== END 2024-01-09 07:26 | disposition home or self-care (01) ==
LOC: HO.LAB 07:25
PROVIDERS: Nurse Practitioner Family; PCP Internal Medicine; Visit Provider Internal Medicine Cardiovascular Disease
DX: E78.5 Hyperlipidemia, unspecified (principal); I25.10 Atherosclerotic heart disease of native coronary artery without angina pectoris
CPT/HCPCS: 36415; 80048; 80061; 80076

== ENCOUNTER 2024-01-12 08:56 | Outpatient (AMB) | payer BC, MEDICARE, SELFPAY ==
[2024-01-12 09:01] VITALS: BP 130/70; PULSE 62; BMI 34.8
--- NOTE | 2024-01-12 09:01 | A.OFFVIS_ITS ---
Vital Signs 01/12/24 09:01 Height 5 ft 10 in Weight 242 lb 8.136 oz BMI 34.8 BP 130/70 Blood Pressure Location Lt brachial Position Sitting Pulse 62 Intake Visit Reasons: f/up Intake Note: Follow-up feeling good Chief Environmental Commitment Officer Required: No Allergies No Known Allergies Allergy (Verified 12/09/21 13:27) Medication List - Last Reconciled 01/12/24 by Ant Dawkins MD amlodipine 5 mg PO BID atorvastatin (Lipitor) 80 mg PO DAILY clopidogrel 75 mg PO DAILY compr.stocking,knee,long,small (T.E.D. Knee [facility]) As directed hydrochlorothiazide 25 mg PO DAILY levothyroxine 88 mcg PO DAILY metoprolol succinate ER (Toprol XL) 25 mg PO DAILY rivaroxaban (Xarelto) 20 mg PO DAILY HPI Comments Details: Cholo comes for follow-up. He said he feels very well. No anginal symptoms. Participating in phase 2 cardiac rehabilitation. Taking all his medications including clopidogrel and Xarelto. His last LDL was 82 mg/dL. He said he has modified his diet significantly and has lost about 8 lb. Denies any heart failure symptoms. Denies any prolonged palpitation irregular heartbeat. Notices some ecchymosis otherwise no major bleeding issues. No lightheadedness, syncope. Blood pressures been well controlled. Overall feels well. [facility] Medical History CAD (coronary artery disease) Syncope WONG (acute kidney injury) Dehydration Paroxysmal atrial fibrillation Hypothyroid HTN (hypertension) New onset a-fib Surgical History (Updated 01/12/24 @ 09:22 by Ant Dawkins MD) S/P cardiac cath Stented coronary artery Family History Mother Diabetes HTN (hypertension) CAD (coronary artery disease) Social History Household Members: Spouse Housing: House Do you presently have visiting nurse or other home services: No Alcohol intake: current Alcohol intake frequency: holidays/special occasions only Alcohol type: beer and hard liquor Patient Tobacco Use Status: Former Tobacco user Advance Directives Date on File: 12/10/21 service: No Current occupational status: employed Review of Systems Const Denies chills, Denies fatigue, Denies fever(s), Denies frequent falls, Denies weakness, Denies weight gain and Denies weight loss ENT Denies dizziness Card Denies chest pain, Denies leg edema, Denies lightheadedness, Denies palpitations, Denies dyspnea, Denies dyspnea on exertion, Denies orthopnea and Denies other (loss of consciousness) Resp Denies cough, Denies dyspnea and Denies dyspnea on exertion GI Denies hematochezia and Denies change in stool character Musc Denies abnormal gait, Denies muscle weakness, Denies numbness, Denies radiating pain into limb and Denies tingling Neuro Denies abnormal gait, Denies dizziness, Denies frequent falls, Denies numbness, Denies tingling and Denies weakness Endo Denies fatigue and Denies palpitations Physical Exam Vital Signs: Last Vital Signs Pulse 62 01/12/24 09:01 BP 130/70 01/12/24 09:01 BMI result Body Mass Index 34.8 Const General: cooperative, healthy appearing, comfortable and no acute distress Orientation/consciousness: patient oriented x3 Neck Neck: Yes normal visual inspection and Yes no JVD Carotids: normal carotid upstroke Chest Chest palpation & inspection: normal inspection of the chest Resp Effort & Inspection: normal respiratory effort Auscultation: clear to auscultation bilaterally, no crackles, no rales, no rhonchi and no wheezes Cardio Jugular venous distension: no JVD Rate: regular rate Rhythm: regular rhythm Heart sounds: S1 normal heart sound present, S2 normal heart sound present, no gallops, no murmurs and no rubs Peripheral pulses: Peripheral pulses 2+ throughout Skin General skin exam: no rashes or lesions noted Neuro General: patient oriented x3 Extrem Other: sock markings Right radial cath site with easily palpable radial pulse, normal right hand assessment General: Yes normal to inspection and No calf tenderness Psych Appearance: grossly normal Mental Status: mental status grossly normal Speech and movement: Normal speech and movement present Assessment & Plan Assessment & Plan (1) CAD (coronary artery disease): Code(s): I25.10 - Atherosclerotic heart disease of [place] coronary artery without angina pectoris Category: Medical Plan: CAD status post drug-eluting stent to the proximal LAD with significantly improved exertional symptoms. Continue aggressive medical therapy. His LDL is currently not well optimized and will uptitrate his atorvastatin to 80 mg daily. Follow-up lipid panel in 3 months time. We discussed the pathophysiology of coronary artery disease as well as pathophysiology of drug-eluting stent. Continue Plavix uninterrupted for 1 year. Currently also on Xarelto therapy for atrial fibrillation, see below. Continue aggressive blood pressure control. Continue to participate in phase 2 cardiac rehabilitation participate in regular physical activity and weight loss program and dietary modification. (2) Paroxysmal atrial fibrillation: Code(s): I48.0 - Paroxysmal atrial fibrillation Category: Medical Plan: Paroxysmal atrial fibrillation without any obvious clinical recurrence. Continue metoprolol therapy. Continue aggressive blood pressure control. No indication for antiarrhythmic drug therapy. Advised to call me with new symptoms. Continue full oral anticoagulation, currently on Xarelto 20 mg daily. Semi annual renal function test should be pursued. Avoidance of stimulants was discussed. Will follow up in the clinic in 6 months time, sooner p.r.n.. Thank you for allowing me to partake in his care Orders: Orders Lipid Panel 3 Months I25.10 - Atherosclerotic heart disease of [place] coronary artery without angina pectoris Medications: New clopidogrel 75 mg PO DAILY 30 tabs 5RF I25.10 - Atherosclerotic heart disease of [place] coronary artery without angina pectoris atorvastatin (Lipitor) 80 mg PO DAILY 30 tabs 5RF Discontinued atorvastatin Discontinued Reason: Doctor's Order 40 mg PO BEDTIME 90 tabs 3RF Coding Level of Care Code Est Pt Level 4 (01926) Diagnoses CAD (coronary artery disease) I25.10 Paroxysmal atrial fibrillation I48.0
== END 2024-01-12 09:27 | disposition home or self-care (01) ==
PROVIDERS: PCP Internal Medicine; Visit Provider Internal Medicine Cardiovascular Disease
DX: I25.10 Atherosclerotic heart disease of native coronary artery without angina pectoris (principal); I48.0 Paroxysmal atrial fibrillation
CPT/HCPCS: 99214

== ENCOUNTER → 2024-01-12 08:56 | Outpatient (BNVA) | payer BC, MEDICARE, SELFPAY | PROVIDERS: PCP Internal Medicine; Visit Provider Internal Medicine Cardiovascular Disease ==

== ENCOUNTER 2025-05-10 07:51 | Outpatient (REF) | payer BC, SELFPAY ==
--- OUTSIDE RECORDS SUMMARY | 2025-05-10 07:53 | XMS_ITS | Patient Health Record ---
Author Organization [facility] Address [address] [place] [id number] Care Team Providers Care Information Security Consultant Name Role Phone Mike Villafuerte Primary Care Provider Carlos Carbajal Jr Unavailable [phone] Allergies No Known Allergies Reason For Referral No Information Medications Medication SIG (Take, Route, Frequency, Duration) Notes Start Date End Date Status Metoprolol Succinate ER 25 MG Oral for 30 Active Xarelto 20 MG Oral for 30 Acti ve Levothyroxine Sodium 100 MCG 1 tablet in the morning on an empty stomach Orally Once a day for 30 day(s) Active MiraLax (colon prep) 17 GM/SCOOP mixed with Gatorade or Crystal Light Orally begin at 5:00 p.m. the day before the procedure for 1 day 2023 Active Atorvastatin Calcium 40 MG 1 tablet Oral ly Once a day for 30 day(s) Active hydroCHLOROthiazide 25 MG Oral for 30 Active amLODIPine Besylate 5 MG Oral for 30 Active Clopidogrel Bisulfate 75 MG Oral for 30 Active Social History Tobacco Use: Social History Observation Description Date Details (start date - stop date) Never Smoker NA - NA Tobacco Use/Smoking Question Answer Notes Patient is a nonsmoker Alcohol Screen Question Answer Notes Did you have a drink containing alcohol in the p ast year? No Points 0 Interpretation Negative Problems Problem Type SNOMED Code ICD Code Onset Dates Problem Status W/U Status Risk Notes Problem 871835069 Colon cancer screening (Z12.11) Active confirmed Problem [id number] snf (curre nt) use of anticoagulants (Z79.01) Active confirmed Problem 378394933 Encounter for ot her preprocedural examination (Z01.818) Active confirmed Encounters Encounter Location Date Provider Diagnosis [facility] [address] [place] [address] 08/23/2024 Carlos Vidal Jr [facility] [address] [place] [address] 11/03/2024 Carlos Vidal Jr Plan Of Treatment Future Test Test Name Order Date COLONOSCOPY 2023 Insurance Providers Payer Name Payer Address Payer Phone Subscriber Number Group Number Insured Name Patient Relationship to Insured Coverage Start Date Coverage End Date [facility] [employer] [address] [place] [address] [id number] THOMPSON ARVIZU Self - patient is the insured Medical (General) History Medical History History ICD Code Paroxysmal atrial fibrillation Hypertension Hypothyroid Hyperlipidemia Coronary disease with stent placement Surgical History Surgery Date(Month/Year) cardiac stent -Dr Dawkins 2023 knees bilateral
--- OUTSIDE RECORDS SUMMARY | 2025-05-10 07:53 | XMS_ITS | Clinical Summary ---
Author Organization [facility] Address [address] [address] Phone Care Team Providers Care Appeals Assistant Name Role Phone Mike Villafuerte MD Primary Care Provid er Medications acetaminophen (TYLENOL) 500 MG tablet Take 1,000 mg by mouth every 6 (six) hours as needed for pain (specific location in comments). 08/11/2024 Active atorvastatin (LIPITOR) 80 MG tablet Take 80 mg by mouth daily. 08/11/2024 Active clopidogrel (PLAVIX) 75 mg tablet Take 75 mg by mouth daily. 08/11/2024 Active docusate sodium (COLACE) 100 MG capsule Take 100 mg by mouth 2 (two) times a day. 08/11/2024 Active hydroCHLOROthia zide 25 MG tablet Take 25 mg by mouth daily. 08/11/2024 Active levothyroxine (SYNTHROID, LEVOTHROID) 88 MCG tablet Take 88 mcg by mouth every morning. 08/11/2024 Active metoprolol succinate (TOPROL-XL) 25 MG 24 hr tablet Take 25 mg by mouth daily. 08/11/2024 Active rivaroxaban (XARELTO) 10 mg tablet Take 20 mg by mouth daily. 08/11/2024 Active senna 8.6 mg tablet Take 1 tablet by mouth daily. 08/11/2024 Active oxyCODONE 5 MG immediate release tablet Take 5 mg by mouth every 6 (six) hours as needed for pain (specific location in comments). 08/11/2024 Active calcium carbonate-vitam in D3 (CALCIUM 500 + D) 500 mg-400 units per tablet Take 1 tablet by mouth daily. 08/11/2024 Active Encounters Date Type Department Care Team Description 03/23/2025 Episode Documentatio n Update [facility] [address] [place] [address] Trish Pickering from Last 3 Months Social History Tobacco Use Types Packs/Day Years Used Date Smoking Tobacco: Never Assessed Home Health Assessment: Transportation Answer Date Recorded Lack of Transportation (Medical) No 10/08/2024 Lack of Transportation (Non-Medical) No 10/08/2024 Patient Unable or Declines to Respond No 10/08/2024 Education Answer Date Recorded Are you interested in more education? Not on nir e 08/03/2024 Are you concerned about learning? Not on file 08/03/2024 No 08/03/2024 No 08/03/2024 Digital Access Answer Date Recorded No 08/03/2024 No 08/03/2024 Reliable internet access at home? Not on file 08/03/2024 Device with a working camera? Not on file Sex and Gender Information Value Date Recorded Sex Assigned at Not on file Legal Sex Male 12:09 PM EST Gender Identity Not on file Sexual Orientation Not on file Last Filed Vital Signs Vital Sign Reading Time Taken Comments Blood Pressure 128/64 09/28/2024 9:39 AM EST Pulse 72 09/28/2024 9:39 AM EST Temperature - - Respiratory Rate - - Oxygen Saturation 98% 09/28/2024 9:39 AM EST Inhaled Oxygen Concentration - - Weight - - Height - - Body Mass Index - - Plan of Treatment Not on file Medical Devices Not on file Insurance [facility] [place] [address] [employer] , [place] [address] Care Teams Appeals Assistant Relationship Specialty Start Date End Date Mike Villafuerte MD [address] [place] [address] PCP - General Internal Medicine 08/04/24 Additional Source Comments The information contained in this document represents components of the legal health record. It is not the complete legal health record.[facility]
[2025-05-10 08:20] LABS: MANUAL DIFF FLAG NO
[2025-05-10 08:47] LABS: Hematocrit 47.6 % (42.0-52.0); Hemoglobin 15.4 g/dl (14.0-18.0); Imm Gran Abs Auto 0.09 X10*3/uL (0.00-0.03); Imm Gran Pct Auto 1.1 % (0.0-0.4); Lymphocytes Absolute Auto 1.5 X10*3/uL (1.2-4.9); Mean Corpuscular HGB Conc 32.4 g/dl (31.0-36.0); Mean Corpuscular Hemoglobin 28.1 pg (27.0-33.0); Mean Corpuscular Volume 86.7 fL (80.0-98.0); NRBC Abs Auto 0.000 X10*3/uL (0.0-0.012); NRBC Pct Auto 0.0 /100WBC (0.0-0.2); Platelet Count 369 X10*3/uL (160-400); Red Blood Count 5.49 X10*6/uL (4.60-5.80); White Blood Count 7.9 X10*3/uL (4.8-10.8)
[2025-05-10 09:29] LABS: Albumin Level 4.6 g/dL (3.5-5.0); Alkaline Phosphatase 99 U/L (39-117); Anion Gap 9 (12-20); Aspartate Amino Transferase 25 U/L (5-37); Blood Urea Nitrogen 16 mg/dL (9-16); Calcium 9.7 mg/dL (8.4-10.2); Carbon Dioxide 32 mmol/L (22-29); Chloride 103 mmol/L (96-108); Cholesterol 133 mg/dL (<200); Estimated Glomerular Filt Rate > 60; HDL Cholesterol 39 mg/dL (>40); Potassium 4.1 mmol/L (3.3-5.1); Sodium 140 mmol/L (135-145); Total Protein 6.9 g/dL (6.5-8.0); Triglycerides 87 mg/dL (<150)
[2025-05-10 09:56] LABS: Alanine Aminotransferase 28 U/L (0-40)
== END 2025-05-10 07:52 | disposition home or self-care (01) ==
LOC: HO.LAB 07:51
PROVIDERS: PCP Internal Medicine; Visit Provider Nurse Practitioner Family
DX: I25.10 Atherosclerotic heart disease of native coronary artery without angina pectoris (principal); I48.0 Paroxysmal atrial fibrillation; I10 Essential (primary) hypertension; Z79.01 Long term (current) use of anticoagulants
CPT/HCPCS: 36415; 80053; 80061; 85025; 93005

== ENCOUNTER 2025-05-10 08:33 | Outpatient (AMB) | payer BC, MEDICARE, SELFPAY ==
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
[2025-05-10 08:44] VITALS: BP 118/60; PULSE 54; BMI 35.4
== END 2025-05-10 09:11 | disposition home or self-care (01) ==
LOC: HO.HCS 08:34
PROVIDERS: PCP Internal Medicine; Visit Provider Internal Medicine Cardiovascular Disease
DX: I25.10 Atherosclerotic heart disease of native coronary artery without angina pectoris (principal); I48.0 Paroxysmal atrial fibrillation
CPT/HCPCS: 93010; 99214